=== PATIENT | female | born 1955 | race Caucasian/White ===

== ENCOUNTER 2020-05-10 13:12 | Observation (INO) | payer OTHER ==
[2020-05-10 15:50] LABS: Absolute Lymphocytes (CBC) 1.7 K/uL (0.7-4.9); Basophils % 0.9 % (0-1.3); Hematocrit 40.7 % (36.0-45.0); Lymphocytes % 27.1 % (15.3-44.8); MPV 8.5 fL (7.6-11.3); RBC Red Blood Cell Count 4.39 M/uL (3.86-4.86)
[2020-05-10 15:55] LABS: Protime INR 0.92
--- NOTE | 2020-05-10 15:55 | RAD REPORT ---
EXAM DESCRIPTION: RAD - Chest Single View - 05/10/2020 3:46 pm CLINICAL HISTORY: CHEST PAIN Chest pain. COMPARISON: No comparisons FINDINGS: Portable technique limits examination quality. The lungs are grossly clear. The heart is upper limit of normal in size. No displaced fractures. IMPRESSION: No acute intrathoracic process suspected.
[2020-05-10 16:39] LABS: ALT/SGPT 23 U/L (12-78); AST/SGOT 12 U/L (15-37); Albumin 3.4 g/dL (3.4-5.0); Alkaline Phosphatase 78 U/L (45-117); BUN Blood Urea Nitrogen 18 mg/dL (7-18); Bicarbonate 26 mmol/L (21-32); Bilirubin Direct 0.2 mg/dL (0-0.2); Bilirubin Total 0.6 mg/dL (0.2-1.0); Glucose Level 104 mg/dL (74-106); NT PRO-BNP 112 pg/mL (<125); Potassium 4.1 mmol/L (3.5-5.1); Protein, Total 7.4 g/dL (6.4-8.2); Sodium Level 140 mmol/L (136-145); Troponin (Emerg Dept Use Only) < 0.02 ng/mL (0.0-0.045)
--- NOTE | 2020-05-10 16:57 | EDPHYS ---
Physician Documentation [facility] Name: Sheree Fuentes Age: 65 yrs Sex: Female : 1955 Arrival Date: 05/10/2020 Time: 13:12 Bed 26 Private MD: ED Physician Janak Castro HPI: 05/10 13:21 This 65 yrs old Female presents to ER via Ambulatory with complaints of Chest jmm Pain. 13:21 The patient or guardian reports chest pain that is located primarily in the substernal [facility] area. Onset: gradually, 2 hour(s) ago. The pain does not radiate. Associated signs and symptoms: Pertinent positives: shortness of breath. The chest pain is described as aching, a pressure. Duration: The patient or guardian reports a single episode, that lasted 1 hour(s). Modifying factors: The symptoms are alleviated by nothing. the symptoms are aggravated by nothing. The patient has experienced similar episodes in the past, similar to previous [place]. Historical: - Allergies: 13:20 No Known Allergies; ca1 - Home Meds: 17:26 aspirin 81 mg Oral TbEC 1 tab once daily [Active]; hydrochlorothiazide 12.5 mg Oral cap zb 1 cap once daily [Active]; simvastatin Oral [Active]; meloxicam oral oral [Active]; 17:28 lisinopril 40 mg Oral tab 20 mg bid [Active]; zb - PMHx: 13:20 Myocardial infarction; Hypertension; CAD; Hernia; ca1 - PSHx: 13:20 Stents; ca1 - Immunization history:: Flu vaccine is not up to date. - Social history:: Smoking status: Patient/guardian denies using tobacco, the patient reports quitting approximately 7 years ago. ROS: 13:21 Constitutional: Negative for fever, chills, and weight loss. jmm 13:21 Cardiovascular: Positive for chest pain. 13:21 Respiratory: Positive for shortness of breath. 13:21 All other systems are negative. Exam: 13:21 Constitutional: This is a well developed, well nourished patient who is awake, alert, jmm and in no acute distress. Head/Face: atraumatic. Eyes: EOMI, no conjunctival erythema appreciated ENT: Moist Mucus Membranes Neck: Trachea midline, Supple Chest/axilla: Normal chest wall appearance and motion. Cardiovascular: Regular rate and rhythm. No edema appreciated Respiratory: Normal respirations, no respiratory distress appreciated Abdomen/GI: Non distended, soft Back: Normal ROM Skin: General appearance color normal MS/ Extremity: Moves all extremities, no obvious deformities appreciated, no edema noted to the lower extremities Neuro: Awake and alert, normal gait Psych: Behavior is normal, Mood is normal, Patient is cooperative and pleasant Vital Signs: 13:17 BP 229 / 87; Pulse 98; Resp 16 S; Temp 97.1(TE); Pulse Ox 95% on R/A; Weight 106.59 kg ca1 (R); Height 5 ft. 5 in. (165.10 cm) (R); Pain 8/10; 15:25 BP 151 / 62; zb 15:55 Pulse Ox 87% on R/A; zb 16:23 BP 161 / 66; Pulse 50; Resp 18; Pulse Ox 95% on 2 lpm NC; zb 17:20 BP 145 / 59; Pulse 52; Resp 22; Pulse Ox 94% on R/A; dh4 18:46 BP 153 / 65; Pulse 55; Pulse Ox 99% on R/A; dh4 20:53 BP 152 / 64; Pulse 53; Resp 20; Pulse Ox 95% on R/A; zb 13:17 Body Mass Index 39.11 (106.59 kg, 165.10 cm) ca1 MDM: 15:36 Patient medically screened. [facility] 16:54 The patient was given aspirin in the Emergency Department. [facility] 16:54 Data reviewed: vital signs, nurses notes. Counseling: I had a detailed discussion with [facility] the patient and/or guardian regarding: the historical points, exam findings, and any diagnostic results supporting the discharge/admit diagnosis, lab results, radiology results, the need for further work-up and treatment in the hospital. ED course: I discussed the patient with Dr. Lennon whom accepted admission. . 05/10 15:20 Order name: Basic Metabolic Panel; Complete Time: 16:41 [facility] 05/10 15:20 Order name: CBC with Diff; Complete Time: 15:57 [facility] 05/10 15:20 Order name: LFT's; Complete Time: 16:41 [facility] 05/10 15:20 Order name: Magnesium; Complete Time: 16:41 [facility] 05/10 15:20 Order name: NT PRO-BNP; Complete Time: 16:41 [facility] 05/10 15:20 Order name: PT-INR; Complete Time: 15:57 [facility] 05/10 15:20 Order name: Troponin (emerg Dept Use Only); Complete Time: 16:41 [facility] 05/10 17:21 Order name: CKMB Creatine Kinase MB [facility] 05/10 17:21 Order name: CKMB Creatine Kinase MB; Complete Time: 20:14 [facility] 05/10 17:21 Order name: CKMB Creatine Kinase MB [facility] 05/10 17:22 Order name: CBC with Automated Diff [facility] 05/10 17:22 Order name: CBC with Automated Diff [facility] 05/10 17:22 Order name: CKMB Creatine Kinase MB [facility] 05/10 17:22 Order name: Comprehensive Metabolic Panel [facility] 05/10 13:21 Order name: EKG; Complete Time: 13:21 [facility] 05/10 15:20 Order name: XRAY Chest (1 view); Complete Time: 15:57 [facility] 05/10 17:22 Order name: CONS Pharmacy Consult [facility] 05/10 17:22 Order name: CONS Physician Consult [facility] 05/10 17:22 Order name: Heart Healthy [facility] 05/10 17:22 Order name: EKG Electrocardiogram [facility] 05/10 17:22 Order name: Comprehensive Metabolic Panel [facility] 05/10 17:22 Order name: Lipid Profile [facility] 05/10 17:22 Order name: Lipid Profile [facility] 05/10 17:22 Order name: Troponin I [facility] 05/10 17:22 Order name: Troponin I; Complete Time: 20:14 [facility] 05/10 17:22 Order name: Troponin I [facility] 05/10 17:25 Order name: Echo with Doppler [facility] 05/10 17:33 Order name: COVID-19 : Document "Date of Symptom Onset" if Symptomatic. [facility] 05/10 19:12 Order name: SARS-COV-2 RT PCR; Complete Time: 19:14 [facility] 05/10 13:21 Order name: EKG - Nurse/Tech; Complete Time: 13:26 [facility] 05/10 15:20 Order name: Cardiac monitoring; Complete Time: 15:44 [facility] 05/10 15:20 Order name: IV Saline Lock; Complete Time: 15:44 [facility] 05/10 15:20 Order name: Labs collected and sent; Complete Time: 15:44 [facility] 05/10 15:20 Order name: O2 Per Protocol; Complete Time: 15:44 [facility] 05/10 15:20 Order name: O2 Sat Monitoring; Complete Time: 15:44 [facility] 05/10 17:22 Order name: EKG Electrocardiogram [facility] 05/10 18:51 Order name: Labs - recollect needed: Phlebotomy will come and draw; Complete Time: 18:51aa5 Administered Medications: 17:20 Drug: Aspirin Chewable Tablet 324 mg {Note: patient given 3x 81mg took a baby aspirin zb at home. .} Route: PO; 18:00 Follow up: Response: No adverse reaction zb Disposition: 05/10/20 16:55 Hospitalization ordered by Ruiz Lennon for Observation. Preliminary diagnosis is Chest pain, unspecified. - Bed requested for Telemetry/MedSurg (observation). - Status is Observation. zb - Condition is Stable. - Problem is new. - Symptoms are unchanged. Addendum: 05/15/2020 15:55 Co-signature as Attending Physician, Janak Castro MD. r n Signatures: Dispatcher [employer] [facility] Mikey Rausch PA PA Janak Hernandez MD MD rn Calderon, Audri, RN RN aa5 Yakelin Escobar RN RN tl1 Lauren Henderson, RN RN ca1 Lucía Jackson RN RN zb Corrections: (The following items were deleted from the chart) 05/10 15:29 15:22 Chest Single View+RAD.RAD.BRZ ordered. [facility] EDWA 19:21 16:55 Hospitalization Ordered by Ruiz Lennon MD for Observation. Preliminary tl1 diagnosis is Chest pain, unspecified. Bed requested for Telemetry/MedSurg (observation). Status is Observation. Condition is Stable. Problem is new. Symptoms are unchanged. [facility] 20:53 19:21 05/10/2020 16:55 Hospitalization Ordered by Ruiz Lennon MD for Observation. zb Preliminary diagnosis is Chest pain, unspecified. Bed requested for Telemetry/MedSurg (observation). Status is Observation. Condition is Stable. Problem is new. Symptoms are unchanged. tl1
--- NOTE | 2020-05-10 16:57 | ER ---
Nurse's Notes [facility] Name: Sheree Fuentes Age: 65 yrs Sex: Female : 1955 Arrival Date: 05/10/2020 Time: 13:12 Bed 26 Private MD: Diagnosis: Chest pain, unspecified Presentation: 05/10 13:17 Chief complaint: Patient states: chest pain off and on x 2 weeks, has been worse today, ca1 about 30 mins SIDER. HX of heart attack, stents x 5. Coronavirus screen: Client denies travel out of the [place] in the last 14 days. At this time, the client does not indicate any symptoms associated with coronavirus-19. Ebola Screen: Patient negative for fever greater than or equal to 101.5 degrees Fahrenheit, and additional compatible Ebola Virus Disease symptoms Patient denies exposure to infectious person. Patient denies travel to an Ebola-affected area in the 21 days before illness onset. No symptoms or risks identified at this time. Initial Sepsis Screen: Does the patient meet any 2 criteria? No. Patient's initial sepsis screen is negative. Does the patient have a suspected source of infection? No. Patient's initial sepsis screen is negative. Risk Assessment: Do you want to hurt yourself or someone else? Patient reports no desire to harm self or others. Onset of symptoms was May 10, 2020. 13:17 Method Of Arrival: Ambulatory ca1 13:17 Acuity: CHAD 3 ca1 Historical: - Allergies: 13:20 No Known Allergies; ca1 - Home Meds: 17:26 aspirin 81 mg Oral TbEC 1 tab once daily [Active]; hydrochlorothiazide 12.5 mg Oral cap zb 1 cap once daily [Active]; simvastatin Oral [Active]; meloxicam oral oral [Active]; 17:28 lisinopril 40 mg Oral tab 20 mg bid [Active]; zb - PMHx: 13:20 Myocardial infarction; Hypertension; CAD; Hernia; ca1 - PSHx: 13:20 Stents; ca1 - Immunization history:: Flu vaccine is not up to date. - Social history:: Smoking status: Patient/guardian denies using tobacco, the patient reports quitting approximately 7 years ago. Screenin:23 Abuse screen: Denies threats or abuse. Denies injuries from another. Nutritional zb screening: No deficits noted. Tuberculosis screening: No symptoms or risk factors identified. Fall Risk None identified. Assessment: 15:18 General: Appears in no apparent distress. comfortable, Behavior is calm, cooperative, zb appropriate for age, Denies fever, feeling ill, chills. Pain: Complains of pain in anterior aspect of left upper chest Pain radiates to neck, left supraclavicular area and left clavicle Pain currently is 6 out of 10 on a pain scale. Quality of pain is described as heavy, radiating, Pain began 2 weeks but worst today Is continuous, Also complains of nausea. Neuro: Level of Consciousness is awake, alert, obeys commands, Oriented to person, place, time, situation, Optical Laboratory Mechanic are equal bilaterally Speech is normal, Facial symmetry appears normal, Pupils are PERRLA. Cardiovascular: Reports shortness of breath, Heart tones S1 S2 present Capillary refill < 3 seconds in bilateral fingers Patient's skin is warm and dry. Pulses are all present. Edema is 2+ to left foot and right foot Chest pain is described as mild, quality is heaviness, pressure, is located in left anterior chest wall radiates to left neck began episodic for the past 2 weeks. Respiratory: Airway is patent Respiratory effort is even, unlabored, Respiratory pattern is regular, symmetrical, Breath sounds are clear bilaterally. the patient has moderate shortness of breath. GI: Abdomen is round distended, obese, Bowel sounds present X 4 quads. Abd is soft and non tender X 4 quads. : No signs and/or symptoms were reported regarding the genitourinary system. EENT: No signs and/or symptoms were reported regarding the EENT system. Derm: Skin is intact, is healthy with good turgor, Skin is dry, Skin is normal, Skin temperature is warm. Musculoskeletal: Range of motion: intact in all extremities. 15:27 Reassessment: daughter (KARLI) called [phone] for information on patient. zb 15:29 Reassessment: x-ray at bedside. zb 16:24 Reassessment: Patient appears in no apparent distress at this time. Patient and/or zb family updated on plan of care and expected duration. Pain level reassessed. Patient is alert, oriented x 3, equal unlabored respirations, skin warm/dry/pink. 16:32 Reassessment: spoke to patient daughter. zb 16:45 Reassessment: hospitalist at bedside. zb 17:29 Reassessment: Patient appears in no apparent distress at this time. Patient and/or zb family updated on plan of care and expected duration. Pain level reassessed. Patient is alert, oriented x 3, equal unlabored respirations, skin warm/dry/pink. pt ambulated to the restroom. 18:30 Reassessment: Patient appears in no apparent distress at this time. Patient and/or zb family updated on plan of care and expected duration. Pain level reassessed. Patient is alert, oriented x 3, equal unlabored respirations, skin warm/dry/pink. no changes at this time. patient appears to be resting light dimmed. 19:18 Reassessment: Patient appears in no apparent distress at this time. Patient and/or zb family updated on plan of care and expected duration. Pain level reassessed. Patient is alert, oriented x 3, equal unlabored respirations, skin warm/dry/pink. patient currently eating food. Vital Signs: 13:17 BP 229 / 87; Pulse 98; Resp 16 S; Temp 97.1(TE); Pulse Ox 95% on R/A; Weight 106.59 kg ca1 (R); Height 5 ft. 5 in. (165.10 cm) (R); Pain 8/10; 15:25 BP 151 / 62; zb 15:55 Pulse Ox 87% on R/A; zb 16:23 BP 161 / 66; Pulse 50; Resp 18; Pulse Ox 95% on 2 lpm NC; zb 17:20 BP 145 / 59; Pulse 52; Resp 22; Pulse Ox 94% on R/A; dh4 18:46 BP 153 / 65; Pulse 55; Pulse Ox 99% on R/A; dh4 20:53 BP 152 / 64; Pulse 53; Resp 20; Pulse Ox 95% on R/A; zb 13:17 Body Mass Index 39.11 (106.59 kg, 165.10 cm) ca1 ED Course: 13:12 Patient arrived in ED. as 13:19 Triage completed. ca1 13:20 Arm band placed on right wrist. ca1 15:11 Lucía Jackson RN is Primary Nurse. zb 15:17 Mikey Rausch PA is PHCP. jmm 15:17 Janak Castro MD is Attending Physician. jmm 15:23 No provider procedures requiring assistance completed. zb 15:28 Patient has correct armband on for positive identification. Pulse ox on. NIBP on. Door zb closed. Noise minimized. Warm blanket given. Pillow given. 15:28 Patient maintains SpO2 saturation greater than 95% on room air. zb 15:44 Inserted saline lock: 20 gauge in left hand, using aseptic technique. Blood collected. zb 15:46 XRAY Chest (1 view) In Process Unspecified. EDMS 16:55 Ruiz Lennon MD is Hospitalizing Provider. jmm 18:23 COVID swab sent to lab. zb 20:53 Patient admitted, IV remains in place. zb Administered Medications: 17:20 Drug: Aspirin Chewable Tablet 324 mg {Note: patient given 3x 81mg took a baby aspirin zb at home. .} Route: PO; 18:00 Follow up: Response: No adverse reaction zb Outcome: 16:55 Decision to Hospitalize by Provider. jmm 20:52 Admitted to Med/surg accompanied by tech, room 209, with chart, Report called to bassam Shankar RN 20:52 Condition: stable 20:52 Instructed on the need for admit, Demonstrated understanding of instructions. 20:53 Patient left the ED. bassam Signatures: Dispatcher [employer] EDMS Mikey Rausch PA PA jmm Martinez, Amelia as Acob, Cheryl, RN GURU [facility] Lucía Jackson RN RN zb
[2020-05-10] MEDS ORDERED: ONDANSETRON 4 MG/2 ML VIAL IV PRN (17:16)
--- NOTE | 2020-05-10 17:29 | P.HP ---
Certification for Inpatient Patient admitted to: Observation With expected LOS: <2 Midnights Patient will require the following post-hospital care: None Practitioner: I am a practitioner with admitting privileges, knowledge of patient current condition, hospital course, and medical plan of care. Services: Services provided to patient in accordance with Admission requirements found in Title 42 Section 412.3 of the Code of Federal Regulations Patient History Date of Service: 05/10/20 Reason for admission: Chest pain, elevated blood pressure History of Present Illness: 65-year-old female with past medical history of hypertension, CHF, CAD status post 5 stents placed came to ER with chest pain which started this morning. Patient states that the pain started insidiously while she was at rest. Retrosternal location, pressure-like feeling, 8/10 in severity, nonradiating associated with shortness of breath. Denies any diaphoresis. No modifying f actors. Denies any nausea vomiting or diarrhea. No fever or chills. No sick contacts. She was also found to have high blood pressure and to her home medications but even in spite of that her blood pressure was creeping up and got worried and came to ER. The patient was assessed in the ER and chest pain got better and blood pressure was controlled The patient is being admitted for further management of chest pain to rule out ACS. His EKG shows ST-T changes consistent with inferolateral ischemia. Home medications list reviewed: Yes - Past Medical/Surgical History -: Hypertension, hyperlipidemia, CAD, CHF Past Surgical History: Reviewed- Non-Contributory -: Stents placed -: Hernia surgery - Family History Family History: Reviewed- Non-Contributory (Family history of hypertension, CAD) - Social History Smoking Status: Former smoker Review of Systems 10-point ROS is otherwise unremarkable Cardiovascular: Chest Pain, Other (For pertinent positives include chest pain, shortness of breath) Physical Examination - Vital Signs Temperature: 98.2 F Blood Pressure: 146/88 Pulse: 78 Respirations: 18 Pulse Ox (%): 96 - Physical Exam General: Alert, In no apparent distress, Oriented x3, Obese HEENT: Atraumatic, Normocephalic Neck: Supple, JVD not distended Respiratory: Clear to auscultation bilaterally, Normal air movement Cardiovascular: No edema, Regular rate/rhythm, Normal S1 S2 Capillary refill: <2 Seconds Gastrointestinal: Soft and benign, W/out hepatosplenomegaly Musculoskeletal: No clubbing, No swelling Integumentary: No rashes Neurological: Normal speech, Normal strength at 5/5 x4 extr Lymphatics: No axilla or inguinal lymphadenopathy - Studies Laboratory Data (last 24 hrs) 05/10/20 15:38: PT 10.6, INR 0.92 05/10/20 15:38: WBC 6.30, Hgb 14.3, Hct 40.7, Plt Count 220 05/10/20 15:38: Sodium 140, Potassium 4.1, BUN 18, Creatinine 0.60, Glucose 104, Magnesium 2.0, Total Bilirubin 0.6, AST 12 L, ALT 23, Alkaline Phosphatase 78 Assessment and Plan - Problems (Diagnosis) (1) Unstable angina Current Visit: Yes Status: Acute (2) Accelerated hypertension Current Visit: Yes Status: Acute (3) Hyperlipidemia Current Visit: Yes Status: Chronic - Plan Unstable angina Accelerated hypertension Hyperlipidemia History of CHF possibly diastolic History of CAD status post stents 5 Obesity Former smoker Plan Monitor closely under telemetry Trend cardiac enzymes Will start on aspirin and statin Will get EKG serially Cardiology consulted Get an echocardiogram Continue home medications and titrate as needed start on hydralazine p.r.n. EKG shows ST-T changes in the infero lateral leads Chest x-ray shows no acute cardio pulmonary process Advice lifestyle modification GI/DVT prophylaxis Advanced directives full code - Advance Directives Does patient have a Living Will: No Does patient have a Durable POA for Healthcare: No Time Spent Managing Pts Care (In Minutes): 42
[2020-05-10] MEDS ORDERED: ASPIRIN 81 MG CHEWABLE TABLET ONE (17:34)
[2020-05-10 20:05] LABS: CKMB Creatine Kinase MB 1.3 ng/mL (0.3-3.6); Troponin I < 0.02 ng/mL (0.0-0.045)
[2020-05-10 21:03] VITALS: BMI 39.9
[2020-05-10] MEDS: ATORVASTATIN 40 MG TAB PO SCH (22:01)
[2020-05-11 00:31] LABS: CKMB Creatine Kinase MB 1.5 ng/mL (0.3-3.6); Troponin I < 0.02 ng/mL (0.0-0.045)
[2020-05-11 05:25] LABS: Absolute Lymphocytes (CBC) 2.2 K/uL (0.7-4.9); Basophils % 0.5 % (0-1.3); Hematocrit 40.2 % (36.0-45.0); Lymphocytes % 33.9 % (15.3-44.8); MPV 8.9 fL (7.6-11.3); RBC Red Blood Cell Count 4.14 M/uL (3.86-4.86)
[2020-05-11 05:36] LABS: Bilirubin Total 0.4 mg/dL (0.2-1.0); Potassium 4.1 mmol/L (3.5-5.1); Protein, Total 6.5 g/dL (6.4-8.2)
--- NOTE | 2020-05-11 05:38 | EKG ---
Test Date: 2020-05-10 Test Time: 13:24:06 [employer] And Folding Supervisor: MARY MEASUREMENT RESULTS: Intervals: Rate: 65 FL: 130 QRSD: 88 QT: 388 QTc: 403 [place]: P: 61 FL: 130 QRS: 47 T: 2 INTERPRETIVE STATEMENTS: Normal sinus rhythm with sinus arrhythmia Nonspecific T wave abnormality Abnormal ECG No previous ECG available for comparison Electronically Signed On 05-11-20 05:35:34 [employer] FILTER INSPECTOR by Richar Wray
[2020-05-11] MEDS: MORPHINE 2 MG/ML SYR IV PRN (08:50)
[2020-05-11] MEDS: ASPIRIN EC 81 MG TAB PO SCH (08:50)
[2020-05-11] MEDS ORDERED: INFLUENZA VACCINE (for 3y+) 0.5 ML DOSE IMVAC ONE (10:00)
[2020-05-11] MEDS ORDERED: PNEUMOCOCCAL VACCINE 0.5 ML IMVAC ONE (10:00)
[2020-05-11] MEDS: HYDRALAZINE HCL 20 MG/ML VIAL IV PRN (16:59)
[2020-05-11] MEDS: ENOXAPARIN 40 MG/0.4 ML SQ SCH (16:59)
[2020-05-11] MEDS: ACETAMINOPHEN 500 MG TAB PO PRN (17:02)
[2020-05-11] MEDS: ATORVASTATIN 40 MG TAB PO SCH (20:38)
--- NOTE | 2020-05-11 20:41 | CON ---
Date of Consultation: 05/11/2020 Presenting Complaints: Chest pain. History Of Present Illness: This is a 65-year-old female with known coronary artery disease status p ost 5 stents put in year 2013 all at once due to acute coronary syndrome back then, comes in with radha st pain, pressure like, radiates to the neck and jaw and left upper extremity and worsens with activi ty, and she gets nauseated with it and it started light about 2 weeks ago and now it is getting worse and more persistent and more frequent. She is chest-pain free at this time. Past Medical History: Hypertension, dyslipidemia, coronary artery disease and congestive heart failu re. Medications: Refer to reconciliation sheet for detailed list. Allergies: NO KNOWN DRUG ALLERGIES. Family History: No premature coronary artery disease or cancer. Past Surgical History: Cardiac stent placement. Social History: She does not smoke or drink. Does not use any drugs. Review of Systems: All systems reviewed and negative except as mentioned in the HPI. Physical Examination: Vital Signs: Temperature is 96.9, pulse 52, breathing at 15, blood pressure 136/61, saturating 90%. General: Pleasant middle-aged female, in no apparent distress. Head and Neck: Pupils are equal, reactive to light. Intact eye movements. No JVD. No cervical lym phadenopathy. Neck: Supple. Thyroid is not enlarged. Lungs: Clear to auscultation bilaterally. No rhonchi, rales, or crackles. No accessory muscle use. Heart: Regular rate and rhythm. No extra sounds. Abdomen: Soft, nontender. Bowel sounds positive. No organomegaly. No rigidity or rebound. Extremities: No edema, clubbing, cyanosis. Intact pulses. Skin: No rashes. Neurologic: Alert, awake, oriented x3. No acute focal deficits appreciated. Investigations: Creatinine 0.7. Troponin less than 0.02 x3 and hemoglobin is 13.7. Assessment And Recommendation: 1.Chest pain. This is very typical pain, likely representing unstable angina with known history of coronary artery disease and multiple stents. Recommend coronary angiogram. Discussed risks, benefit s, alternatives with the patient and her daughter and agree with the procedure. We will schedule for tomorrow morning as the patient had a large lunch today. Please make sure patient is on aspirin and high-dose statin and n.p.o. past midnight for coronary angiogram tomorrow morning. 2.Hypertension. Blood pressure is acceptable. Continue current therapy. SR/MODL Voice ID: [id number] Report ID: [id number]
[2020-05-12] MEDS: HYDRALAZINE HCL 20 MG/ML VIAL IV PRN ×2 (00:29→16:41)
[2020-05-12] MEDS: ASPIRIN EC 81 MG TAB PO SCH (06:07)
--- NOTE | 2020-05-12 08:24 | ECHO ---
HEIGHT: 5 ft 5.5 in WEIGHT: 243 lb 4.8 oz DATE OF STUDY: 05/11/[address]: Ghulam Lennon DO 2-DIMENSIONAL: YES M.MODE: YES DOPPLER: YES COLOR FLOW: YES TDS: YES PORTABLE: NO DEFINITY: NO BUBBLE STUDY: NO DIAGNOSIS: CHEST PAIN CARDIAC HISTORY: CATHERIZATION: YES SURGERY: NO PROSTHETIC VALVE: NO PACEMAKER: NO MEASUREMENTS (cm) DIASTOLIC (NORMALS) SYSTOLIC (NORMALS) IVSd 1.1 (0.6-1.2) LA Diam 3.5 (1.9-4.0) LVEF 55-60% LVIDd 4.9 (3.5-5.7) LVIDs 3.2 (2.0-3.5) %FS 33% LVPWd 1.2 (0.6-1.2) Ao Diam 3.0 (2.0-3.7) 2 DIMENSIONAL ASSESSMENT: RIGHT ATRIUM: NORMAL LEFT ATRIUM: NORMAL RIGHT VENTRICLE: NORMAL LEFT VENTRICLE: NORMAL TRICUSPID VALVE: NORMAL MITRAL VALVE: NORMAL PULMONIC VALVE: NORMAL AORTIC VALVE: NORMAL PERICARDIAL EFFUSION: NONE AORTIC ROOT: NORMAL LEFT VENTRICULAR WALL MOTION: ANTEROSEPTAL HYPOKINESIS. DOPPLER/COLOR FLOW: NORMAL. COMMENTS: NORMAL EJECTION FRACTION OF 55-60%, NORMAL WALL MOTION. MILD MITRAL REGURGITATION, MILD TRICUSPID REGURGITATION. TECHNOLOGIST: CAROL CHAVIRA
--- NOTE | 2020-05-12 12:13 | P.PN ---
Subjective Date of Service: 05/11/20 Subjective: No new changes, No C/O voiced, Improving Review of Systems 10-point ROS is otherwise unremarkable Physical Examination - Vital Signs Temperature: 97.0 F Blood Pressure: 174/76 Pulse: 68 Respirations: 15 Pulse Ox (%): 94 - Physical Exam General: Alert, In no apparent distress, Oriented x3 Respiratory: Clear to auscultation bilaterally, Normal air movement Cardiovascular: Regular rate/rhythm, Normal S1 S2 Gastrointestinal: Normal bowel sounds, No tenderness Musculoskeletal: No tenderness Integumentary: No rashes Neurological: Normal speech, Normal tone, Normal affect Lymphatics: No axilla or inguinal lymphadenopathy - Studies Medications List Reviewed: Yes Assessment & Plan - Problems (Diagnosis) (1) Unstable angina Current Visit: Yes Status: Acute (2) Hyperlipidemia Current Visit: Yes Status: Chronic - Plan 1. Serial troponins and EKG 2. Appreciate Cardiology consultation 3. Echocardiogram and cardiac catheterization ordered 4. Anti-platelet therapy, anti coagulation, beta-cassy, statin, and O2 as needed 5. IV morphine for pain 6. Nitro p.r.n. Discharge Plan: Home Plan to discharge in: 48 Hours - Advance Directives Does patient have a Living Will: No Does patient have a Durable POA for Healthcare: No - Code Status/Comfort Care Code Status Assessed: Yes Code Status: Full Code Critical Care: No Time Spent Managing PTS Care (In Minutes): 35
[2020-05-12] MEDS ORDERED: NA CHLORIDE 0.9% 500 ML ONE (12:32)
[2020-05-12] MEDS ORDERED: HEPA 1000U/500MLS 1,000 UNIT/500 ML BAG IV ONE ×2 (14:28→14:56)
[2020-05-12] MEDS ORDERED: LIDOCAINE 1% 20 ML MDV ONE (14:28)
[2020-05-12] MEDS ORDERED: MIDAZOLAM HCL 2 MG/2 ML INJ ONE ×2 (14:31→14:43)
[2020-05-12] MEDS ORDERED: FENTANYL CITR 100 MCG/2 ML ONE (14:32)
[2020-05-12] MEDS ORDERED: NITROGLYCERIN 100 MCG/ML SYR (for cath lab use only) IV ONE (14:32)
[2020-05-12] MEDS ORDERED: NITROGLYCERIN/D5W 25 MG/250 ML BTL IV ONE (14:32)
[2020-05-12] MEDS ORDERED: NA CHLORIDE 0.9% 50 ML ONE (14:35)
[2020-05-12] MEDS ORDERED: PRASUGREL (EFFIENT) 10 MG TAB ONE (15:36)
[2020-05-12] MEDS ORDERED: ONDANSETRON 4 MG/2 ML VIAL ONE (16:18)
[2020-05-12] MEDS ORDERED: MORPHINE 4 MG/ML SYR ONE (16:29)
[2020-05-12] MEDS ORDERED: NITROGLYCERIN 0.4 MG/TAB SL ONE (16:38)
[2020-05-12] MEDS: MORPHINE 2 MG/ML SYR IV PRN (16:40)
[2020-05-12] MEDS ORDERED: HYDRALAZINE HCL 20 MG/ML VIAL ONE (16:59)
[2020-05-12] MEDS: ENOXAPARIN 40 MG/0.4 ML SQ SCH (17:00)
[2020-05-12] MEDS: ATORVASTATIN 40 MG TAB PO SCH (20:36)
--- NOTE | 2020-05-12 21:11 | OP ---
Date of Procedure: 05/12/2020 Surgeon: Richar Wray MD Process Control Technician: Mr. Estes. She was seen by Dr. Cedeno yesterday, 05/11/2020 and was set up for a heart catheterization for today 05/12/2000 because of unstable angina and CAD. Procedure In Detail: The patient was brought to the [facility]razzo laborer today as an inpatient. She was prepped and draped in the routine sterile fashion. She was given Versed and fentanyl for sedation. We init ially started in the right common femoral artery area. We used 10 cc of xylocaine. A 6-German sheat h was introduced in the right common femoral artery. I could not get access with a wire. Angiograph y there showed 100% occlusion of the right common iliac artery. We attempted to cross the lesion wit h a Andreas wire, which was unsuccessful. We switched then to the left common femoral artery area and we put a 6-German sheath there using the Seldinger technique and 10 cc of xylocaine. On the right s musa, we decided to close with an Angio-Seal. On the left side, we decided to closed with StarClose. The heart catheterization, left ventriculogram and selective coronary arteriogram were done. We use d the left JL4 and JR4 for the procedure. The left main was normal. She had mild to moderate plaqui ng in the LAD, patent stent in the circumflex. She was codominant. The RCA showed a 30% proximal RC A. She had an 80% in-stent restenosis in the mid RCA. She received Angiomax. We switched to a JR4 6-German guide with side hole. A Ellsworth wire was used to cross the lesion successfully. We pre-dila douglas with initially a compliant Emerge 3.0 x 15 and then we switched to a noncompliant emerge 3.0 and 3.5 at high atmospheric pressure. Following that, we put a 3.5 x 16 Synergy. We postdilated that on e as well with a 3.5 x 15 noncompliant Emerge balloon with a 20% residual. There were no complicatio ns. Blood Loss: 5 cc. Postoperative Diagnoses: 1.Coronary artery disease, status post successful PCI and stent of the RCA. 2.Peripheral arterial disease with 100% occlusion of the right common iliac artery. 3.Patent stent of the circumflex with mild plaquing in the LAD. The patient received aspirin, Erika nt, Angiomax. She has received Lovenox yesterday on the floor. Anesthesia: Total conscious sedation was 60 minutes. Plan: The patient to be observed overnight and send home in the morning on her medical regimen, whic h should include aspirin, Plavix, and statins as well as low-dose beta blockers. BRAIN/RON Voice ID: [id number] Report ID: [id number]
[2020-05-12] MEDS: ACETAMINOPHEN 500 MG TAB PO PRN (21:23)
[2020-05-12] MEDS ORDERED: ACETAMINOPHEN 325 MG TABLET PO PRN (21:41)
[2020-05-12] MEDS ORDERED: NITROGLYCERIN 0.4 MG/TAB SL PRN (21:41)
[2020-05-12] MEDS ORDERED: MORPHINE 4 MG/ML SYR IV PRN (21:46)
[2020-05-12] MEDS ORDERED: ONDANSETRON 4 MG/2 ML VIAL IV PRN (21:46)
[2020-05-12] MEDS ORDERED: NA CHLORIDE 0.9% 1,000 ML IV SCH (22:00)
[2020-05-13 06:04] LABS: Absolute Lymphocytes (CBC) 2.5 K/uL (0.7-4.9); Basophils % 0.4 % (0-1.3); Hematocrit 38.4 % (36.0-45.0); Lymphocytes % 30.2 % (15.3-44.8); MPV 8.7 fL (7.6-11.3); RBC Red Blood Cell Count 3.92 M/uL (3.86-4.86)
[2020-05-13 06:09] LABS: BUN Blood Urea Nitrogen 24 mg/dL (7-18); Bicarbonate 27 mmol/L (21-32); Glucose Level 104 mg/dL (74-106); Potassium 4.1 mmol/L (3.5-5.1); Sodium Level 142 mmol/L (136-145)
[2020-05-13] MEDS: ASPIRIN EC 81 MG TAB PO SCH (08:47)
[2020-05-13] MEDS ORDERED: CLOPIDOGREL 75 MG TABLET PO SCH (09:00)
[2020-05-13 12:19] VITALS: O2SAT 95
[2020-05-13 14:35] VITALS: BP 149/67; TEMP 98.7
--- NOTE | 2020-05-14 05:51 | PN ---
Date of Progress Note: 05/13/2020 Ms. Fuentes had come in with unstable angina. Has had a history of coronary artery disease status p ost multiple stents in the circumflex and the RCA. She has had a history of obesity, hypertension, d yslipidemia. On 05/12/2020, she underwent a heart catheterization with selective coronary arteriogra m and underwent an angioplasty and stent of the mid RCA in-stent restenosis. She also was found to h ave a completely occluded right common femoral artery by angiography. We have to use a left common f emoral artery approach. She had no claudication. Overnight, her vital signs were stable, she was af ebrile, in sinus rhythm. Her groin sites were intact. I think she can go home today with aspirin, s tatin, Plavix, metoprolol. I would like to see her in the office in the next 2 to 4 weeks. Her circ umflex stents were open. Her LAD had some minimal disease. BRAIN/RON Voice ID: [id number] Report ID: [id number]
--- NOTE | 2020-05-15 17:15 | EKG ---
Test Date: 2020-05-12 Test Time: 16:31:49 Community Mental Health Worker: MEASUREMENT RESULTS: Intervals: Rate: 55 [place]: 144 QRSD: 92 QT: 436 QTc: 417 [place]: P: 55 [place]: 144 QRS: 20 T: 70 INTERPRETIVE STATEMENTS: Sinus bradycardia with sinus arrhythmia Possible Inferior infarct, age undetermined Abnormal ECG Compared to ECG 05/10/2020 13:24:06 Myocardial infarct finding now present Sinus rhythm no longer present T-wave abnormality no longer present Electronically Signed On 05-15-20 17:06:56 SPEECH THERAPY ASSISTANT by Richar Wray
--- NOTE | 2020-05-29 23:32 | P.PN ---
Date of Service: 05/12/20 Subjective Subjective: Patient is doing better. Patient no new complaints. Cardiac symptoms are stable. No new changes, No C/O voiced, Improving Review of Systems 10-point ROS is otherwise unremarkable Physical Examination - Vital Signs Reviewed - Physical Exam General: Alert, In no apparent distress, Oriented x3 Respiratory: Clear to auscultation bilaterally, Normal air movement Cardiovascular: Regular rate/rhythm, Normal S1 S2 Gastrointestinal: Normal bowel sounds, No tenderness Musculoskeletal: No tenderness Neurological: Normal speech, Normal tone, Normal affect Assessment & Plan - Problems (Diagnosis) (1) Unstable angina Current Visit: Yes Status: Acute (2) Hyperlipidemia Current Visit: Yes Status: Chronic - Plan Continue with plan of care as mentioned below: 1. Serial troponins and EKG 2. Appreciate Cardiology consultation 3. Echocardiogram and cardiac catheterization ordered 4. Anti-platelet therapy, anti coagulation, beta-cassy, statin, and O2 as needed 5. IV morphine for pain 6. Nitro p.r.n.
--- NOTE | 2020-05-29 23:35 | P.DS ---
Discharge Date: 05/13/20 Disposition: ROUTINE DISCHARGE Discharge Condition: GOOD Reason for Admission: Chest pain, elevated blood pressure Consultations: Cardiology - Problems (1) Unstable angina Status: Acute (2) Hyperlipidemia Status: Chronic Brief History of Present Illness: Patient is a 65-year-old female who came to the hospital with chest pain. Patient was found to have cardiac disease. Patient had a cardiac catheterization. Hospital Course: Patient was admitted to the hospital and had a heart catheterization with stent placed to the RCA. Patient will continue on antiplatelet therapy and statin therapy. Patient will discharged without patient follow with cardiology. Vital Signs/Physical Exam: Temp Pulse Resp BP Pulse Ox 98.7 F 73 16 149/67 H 96 05/13/20 12:00 05/13/20 12:00 05/13/20 12:00 05/13/20 12:00 05/13/20 12:00 General: Alert, In no apparent distress, Oriented x3 Laboratory Data at Discharge: WBC 8.40 K/uL (4.3-10.9) D 05/13/20 05:31 Hgb 13.3 g/dL (12.0-15.0) 05/13/20 05:31 Hct 38.4 % (36.0-45.0) 05/13/20 05:31 Plt Count 226 K/uL (152-406) 05/13/20 05:31 PT 10.6 SECONDS (9.5-12.5) 05/10/20 15:38 INR 0.92 05/10/20 15:38 Sodium 142 mmol/L (136-145) 05/13/20 05:31 Potassium 4.1 mmol/L (3.5-5.1) 05/13/20 05:31 BUN 24 mg/dL (7-18) H 05/13/20 05:31 Creatinine 0.63 mg/dL (0.55-1.3) 05/13/20 05:31 Glucose 104 mg/dL (74-106) 05/13/20 05:31 Magnesium 2.0 mg/dL (1.8-2.4) 05/10/20 15:38 Total Bilirubin 0.4 mg/dL (0.2-1.0) 05/11/20 04:40 AST 12 U/L (15-37) L 05/11/20 04:40 ALT 22 U/L (12-78) 05/11/20 04:40 Alkaline Phosphatase 68 U/L (45-117) 05/11/20 04:40 Troponin I < 0.02 ng/mL (0.0-0.045) 05/10/20 23:51 Triglycerides 126 mg/dL (<150) 05/11/20 04:40 Cholesterol 155 mg/dL (<200) 05/11/20 04:40 HDL Cholesterol 47 mg/dL (40-60) 05/11/20 04:40 Cholesterol/HDL Ratio 3.30 05/11/20 04:40 Home Medications: Aspirin 81 mg PO DAILY 05/10/20 lisinopriL [Lisinopril] 20 mg PO BID 05/10/20 Atorvastatin Calcium [Lipitor] 40 mg PO BEDTIME #30 tab 05/13/20 Clopidogrel Bisulfate [Plavix*] 75 mg PO DAILY #30 tablet 05/13/20 Metoprolol Tartrate [Lopressor] 50 mg PO BID #60 tab 05/13/20 New Medications: Atorvastatin Calcium [Lipitor] 40 mg PO BEDTIME #30 tab Metoprolol Tartrate [Lopressor] 50 mg PO BID #60 tab Clopidogrel Bisulfate [Plavix*] 75 mg PO DAILY #30 tablet Physician Discharge Instructions: -OK TO DC IV AND DC HOME -FOLLOW-UP WITH PCP IN 1-2 WEEKS -FOLLOW-UP WITH CARDIOLOGY IN 1-2 WEEKS -PLEASE MAKE SURE ALL DIAGNOSTIC STUDIES ARE AVAILABLE AND HAVE BEEN REVIEWED WITH PATIENT PRIOR TO DISCHARGE -RETURN TO THE ER IF symptoms worsened -CALL DR. OSUNA AT [phone] IF ANY QUESTIONS REGARDING HOSPITAL STAY -PLEASE CALL THE FLOOR AT [phone] IF ANY MEDICATION OR NURSING QUESTIONS Diet: AHA Activity: Fall precautions Followup: Richar Wray MD [ACTIVE - CAN ADMIT] - (Follow up in 2 weeks) NONE,NONE [Primary Care Provider] - Time spent managing pt's care (in minutes): 35
== END 2020-05-13 14:07 | disposition home or self-care (01) ==
LOC: ER 13:12 → ERHOLD 17:19 → 2ND 20:27
PROVIDERS: ADMIT Family Medicine; ATTEND Hospitalist
DX: I25.110 Atherosclerotic heart disease of native coronary artery with unstable angina pectoris (principal); E78.5 Hyperlipidemia, unspecified; Z95.5 Presence of coronary angioplasty implant and graft; I11.0 Hypertensive heart disease with heart failure; I50.9 Heart failure, unspecified; Z20.822 Contact with and (suspected) exposure to COVID-19; Z87.891 Personal history of nicotine dependence; R94.31 Abnormal electrocardiogram [ECG] [EKG]; E66.9 Obesity, unspecified
CPT/HCPCS: 93005 ×2; 93306; 85025 ×3; 80048 ×2; 36415 ×2; 83735; 85610; 80061; 80076; 85347 ×2; 84484 ×3; 82553 ×3; 80053; 83880; 71045; 93458; 94760 ×7; 99285; U0003; C1893; C1760; C1725; C9600; J0360 ×3; J2250; J3010; J2270; J0583; J7040; J7030; J1644 ×2; J2405; G0378

== ENCOUNTER 2020-06-07 03:01 | Emergency (ER) | payer OTHER ==
[2020-06-07] MEDS ORDERED: HEPARIN 5000 UNIT/ML 1 ML VIAL ONE (03:37)
[2020-06-07] MEDS ORDERED: HEPARIN/D5W 25,000 UNIT/500 ML BAG IV ONE (03:37)
--- NOTE | 2020-06-07 03:37 | ER ---
Nurse's Notes [facility] Name: Sheree Fuentes Age: 65 yrs Sex: Female : 1955 Arrival Date: 06/07/2020 Time: 03:03 Bed 3 Private MD: Diagnosis: ST elevation (STEMI) myocardial infarction of inferior wall;Essential (primary) hypertension;Obesity, unspecified Presentation: 06/07 03:05 Chief complaint: Patient states: chest pain and abdominal pain going to the left shoulder blade that started around midnight. Coronavirus screen: Client denies travel out of the [place] in the last 14 days. At this time, the client does not indicate any symptoms associated with coronavirus-19. Ebola Screen: Patient negative for fever greater than or equal to 101.5 degrees Fahrenheit, and additional compatible Ebola Virus Disease symptoms Patient denies exposure to infectious person. Initial Sepsis Screen: Does the patient meet any 2 criteria? No. Patient's initial sepsis screen is negative. Does the patient have a suspected source of infection? No. Patient's initial sepsis screen is negative. Risk Assessment: Do you want to hurt yourself or someone else? Patient reports no desire to harm self or others. Onset of symptoms was June 07, 2020. 03:05 Method Of Arrival: Wheelchair 03:05 Acuity: CHAD 3 Historical: - Allergies: 03:26 No Known Allergies; - Home Meds: 03:26 aspirin 81 mg Oral TbEC 1 tab once daily [Active]; hydrochlorothiazide 12.5 mg Oral cap wh 1 cap once daily [Active]; lisinopril 40 mg Oral tab 20 mg BID [Active]; meloxicam Oral [Active]; Simvastatin Oral [Active]; - PMHx: 03:26 CAD; Hernia; Hypertension; Myocardial infarction; - PSHx: 03:26 Heart stents; - Immunization history:: Adult Immunizations not up to date. - Social history:: Smoking status: Patient/guardian denies using. - Family history:: not pertinent. Screenin:27 Abuse screen: Denies threats or abuse. Denies injuries from another. Nutritional screening: No deficits noted. Tuberculosis screening: No symptoms or risk factors identified. Fall Risk None identified. Assessment: 03:28 General: Appears in no apparent distress. Behavior is calm, cooperative, appropriate wh for age. Pain: Complains of pain in chest Pain radiates to left shoulder Quality of pain is described as pressure, Pain began 3 hours ago. Neuro: Level of Consciousness is awake, alert, obeys commands, Oriented to person, place, time, situation, Appropriate for age. Cardiovascular: Reports chest pain, Heart tones S1 S2. Respiratory: Airway is patent Respiratory effort is even, unlabored, Respiratory pattern is regular, symmetrical, Breath sounds are clear bilaterally. GI: Abdomen is round non-distended. : No signs and/or symptoms were reported regarding the genitourinary system. EENT: No signs and/or symptoms were reported regarding the EENT system. Derm: Skin is intact, is healthy with good turgor, Skin is pink, warm \\T\\ dry. normal. Musculoskeletal: Circulation, motion, and sensation intact. 04:02 Reassessment: Patient appears in no apparent distress at this time. Dr. Rich from [address] called and updated about the patient's status. 04:25 Reassessment: Report given to Kelsey GARVEY from Sales Operations Coordinator. 04:46 Reassessment: report given to GURU Munson on CVICU . mg2 Vital Signs: 03:05 BP 183 / 98; Pulse 66; Resp 20; Temp 98.5; Pulse Ox 99% ; Pain 9/10; wh 03:22 Weight 110.6 kg; em 03:40 BP 192 / 107; Pulse 72; Resp 18; Pulse Ox 100% on R/A; mg2 03:55 BP 171 / 102; Pulse 60; Resp 18; Pulse Ox 97% on 2 lpm NC; mg2 04:00 BP 200 / 105; Pulse 78; Resp 18; Pulse Ox 99% on 2 lpm NC; mg2 04:11 BP 184 / 111; Pulse 65; Resp 18; Pulse Ox 100% on 2 lpm NC; Pain 10/10; mg2 04:24 BP 187 / 101; Pulse 78; Resp 18; Pulse Ox 98% on 2 lpm NC; mg2 ED Course: 03:03 Patient arrived in ED. am4 03:07 Pavan Beauchamp, GURU is Primary Nurse. mg2 03:09 Issac Tran MD is Attending Physician. trish 03:10 EKG done, by ED staff, reviewed by Issac Tran MD. wh 03:15 initiated a transfer with Karuna Hoffman from [facility] [place]. mw2 03:22 administrative approval given by Karuna Hoffman/ patient has been accepted to [address] senior cytogenetics laboratory director/ Dr. Proctor has accepted the patient in transfer. [facility] mw2 03:25 Triage completed. 03:27 Inserted saline lock: in right in left antecubital area, using aseptic technique. wh wrist, using aseptic technique. Blood collected. Patient maintains SpO2 saturation greater than 95% on room air. 03:28 [facility] mw2 03:29 Patient has correct armband on for positive identification. Placed in gown. Bed in low wh position. Call light in reach. Side rails up X 1. monitor worker on. Pulse ox on. NIBP on. 03:30 Arm band placed on right wrist. 03:36 XRAY Chest (1 view) In Process Unspecified. EDMS 03:41 [facility] called and stated "we won't be able to fly to your [facility] location but if you have ground EMS pick us up and bring us to your location, and take us back to the airport and we can fly them to the [facility].". 03:42 called [facility] bring them to our location. mw2 04:00 [facility] called back to inform us "the airplane pilot commercial looked at the weather [facility] won't be able to fly the patient to the [facility] we would have to land at [facility] then drive 13 miles to get to the [facility].". 04:01 called [facility] to transport patient to [facility]. mw2 04:25 No provider procedures requiring assistance completed. Patient transferred, IV remains in place. Administered Medications: 03:24 Drug: Heparin (AL-Bolus with thrombolytic) - HEParin 60 units/kg {Co-Signature: yousif mg2 (Anayeli Bonner RN).} Route: IVP; Site: left antecubital; 04:32 Follow up: Response: No adverse reaction 03:25 Drug: Heparin (AL Drip) 12 units/kg/hr - (HEParin 63671 units, D5W 500 ml) mg2 {Co-Signature: yousif Bonner RN).} Route: IV; Rate: calculated rate; Site: left antecubital; 03:28 Drug: Tenecteplase 50 mg {Co-Signature: yousif (Anayeli Bonner RN).} Route: IV; Rate: per em protocol; Site: left antecubital; 03:37 Drug: NS 0.9% 500 ml Route: IV; Rate: bolus; Site: left antecubital; mg2 03:38 Drug: PlaVIX (clopidogrel) 300 mg Route: PO; mg2 04:32 Follow up: Response: No adverse reaction 03:38 Drug: Pepcid 20 mg Route: IVP; Site: left antecubital; mg2 04:32 Follow up: Response: No adverse reaction 03:40 Drug: Aspirin Chewable Tablet 324 mg Route: PO; mg2 04:33 Follow up: Response: No adverse reaction 03:47 Drug: morphine 4 mg Route: IVP; Site: right wrist; wh 04:32 Follow up: Response: No adverse reaction 03:49 Drug: Zofran (Ondansetron) 4 mg Route: IVP; Site: right wrist; wh 04:31 Follow up: Response: No adverse reaction wh 04:32 Follow up: Response: No adverse reaction 03:51 Drug: Lopressor 2.5 mg Route: IVP; Site: right wrist; wh 04:26 Follow up: Response: No adverse reaction; Blood pressure is unchanged wh 04:10 Drug: Lopressor 2.5 mg Route: IVP; Site: right wrist; mg2 04:26 Follow up: Response: No adverse reaction; Blood pressure is unchanged 04:23 Drug: Lopressor 2.5 mg Route: IVP; Site: right wrist; mg2 04:32 Follow up: Response: No adverse reaction 04:23 Drug: morphine 4 mg Route: IVP; Site: right wrist; mg2 04:26 Follow up: Response: No adverse reaction; RASS: Alert and Calm (0) Outcome: 03:36 ER care complete, transfer ordered by MD. chambers 04:25 Transferred to [facility], Transfer form completed. X-rays sent w/ wh patient. Note: Report given to [facility] 04:25 Condition: stable 04:25 Instructed on the need for transfer. 04:29 Patient left the ED. mg2 Signatures: Dispatcher [employer] Issac Dumas MD MD cha Munoz, Edgar, RN RN em Habalo, GURU Guadalupe RN Godfrey Mittal [facility] Pavan Beauchamp RN RN mg2 Martinez, Ashley [facility] Anayeli Bonner RN
--- NOTE | 2020-06-07 03:37 | EDPHYS ---
Physician Documentation [facility] Name: Sheree Fuentes Age: 65 yrs Sex: Female : 1955 Arrival Date: 06/07/2020 Time: 03:03 Bed 3 Private MD: ED Physician Issac Tran HPI: 06/07 03:24 This 65 yrs old Female presents to ER via Unassigned with complaints of Chest trish Pain. 03:24 The patient or guardian reports chest pain that is located primarily in the substernal trish area, anterior chest wall, bilaterally. Onset: just prior to arrival. The pain does not radiate. Associated signs and symptoms: Pertinent positives: lightheadedness, shortness of breath. The chest pain is described as a heaviness, causing indigestion, a pressure. Duration: The patient or guardian reports a single episode, that is still ongoing. Severity of pain: At its worst the pain was moderate severe just prior to arrival, this morning, in the emergency department the pain is unchanged. The patient has not experienced similar symptoms in the past. Historical: - Allergies: 03:26 No Known Allergies; wh - Home Meds: 03:26 aspirin 81 mg Oral TbEC 1 tab once daily [Active]; hydrochlorothiazide 12.5 mg Oral cap wh 1 cap once daily [Active]; lisinopril 40 mg Oral tab 20 mg BID [Active]; meloxicam Oral [Active]; Simvastatin Oral [Active]; - PMHx: 03:26 CAD; Hernia; Hypertension; Myocardial infarction; - PSHx: 03:26 Heart stents; - Immunization history:: Adult Immunizations not up to date. - Social history:: Smoking status: Patient/guardian denies using. - Family history:: not pertinent. ROS: 03:24 Constitutional: Negative for fever, chills, and weight loss, Eyes: Negative for injury, trish pain, redness, and discharge, ENT: Negative for injury, pain, and discharge, Neck: Negative for injury, pain, and swelling, Respiratory: Negative for shortness of breath, cough, wheezing, and pleuritic chest pain, Abdomen/GI: Negative for abdominal pain, nausea, vomiting, diarrhea, and constipation, Back: Negative for injury and pain, : Negative for injury, bleeding, discharge, and swelling, MS/Extremity: Negative for injury and deformity, Skin: Negative for injury, rash, and discoloration, Neuro: Negative for headache, weakness, numbness, tingling, and seizure, Psych: Negative for depression, anxiety, suicide ideation, homicidal ideation, and hallucinations, Allergy/Immunology: Negative for hives, rash, and allergies, Endocrine: Negative for neck swelling, polydipsia, polyuria, polyphagia, and marked weight changes, Hematologic/Lymphatic: Negative for swollen nodes, abnormal bleeding, and unusual bruising. 03:24 Cardiovascular: Positive for chest pain, of the chest. Exam: 03:24 Constitutional: This is a well developed, well nourished patient who is awake, alert, trish and in no acute distress. Head/Face: Normocephalic, atraumatic. Eyes: Pupils equal round and reactive to light, extra-ocular motions intact. Lids and lashes normal. Conjunctiva and sclera are non-icteric and not injected. Cornea within normal limits. Periorbital areas with no swelling, redness, or edema. ENT: Nares patent. No nasal discharge, no septal abnormalities noted. Tympanic membranes are normal and external auditory canals are clear. Oropharynx with no redness, swelling, or masses, exudates, or evidence of obstruction, uvula midline. Mucous membranes moist. Neck: Trachea midline, no thyromegaly or masses palpated, and no cervical lymphadenopathy. Supple, full range of motion without nuchal rigidity, or vertebral point tenderness. No Meningismus. Cardiovascular: Regular rate and rhythm with a normal S1 and S2. No gallops, murmurs, or rubs. Normal PMI, no JVD. No pulse deficits. Respiratory: Lungs have equal breath sounds bilaterally, clear to auscultation and percussion. No rales, rhonchi or wheezes noted. No increased work of breathing, no retractions or nasal flaring. Abdomen/GI: Soft, non-tender, with normal bowel sounds. No distension or tympany. No guarding or rebound. No evidence of tenderness throughout. Back: No spinal tenderness. No costovertebral tenderness. Full range of motion. Female : Normal external genitalia. Skin: Warm, dry with normal turgor. Normal color with no rashes, no lesions, and no evidence of cellulitis. MS/ Extremity: Pulses equal, no cyanosis. Neurovascular intact. Full, normal range of motion. Neuro: Awake and alert, GCS 15, oriented to person, place, time, and situation. Cranial nerves II-XII grossly intact. Motor strength 5/5 in all extremities. Sensory grossly intact. Cerebellar exam normal. Normal gait. Psych: Awake, alert, with orientation to person, place and time. Behavior, mood, and affect are within normal limits. 03:24 Chest/axilla: Inspection: normal, Palpation: is normal, no acute changes, Axilla: are normal, no acute changes, Breasts: are normal, no acute changes, Lymph nodes: lymphadenopathy is not appreciated. 03:24 ECG was reviewed by the Attending Physician. Vital Signs: 03:05 BP 183 / 98; Pulse 66; Resp 20; Temp 98.5; Pulse Ox 99% ; Pain 9/10; wh 03:22 Weight 110.6 kg; em 03:40 BP 192 / 107; Pulse 72; Resp 18; Pulse Ox 100% on R/A; mg2 03:55 BP 171 / 102; Pulse 60; Resp 18; Pulse Ox 97% on 2 lpm NC; mg2 04:00 BP 200 / 105; Pulse 78; Resp 18; Pulse Ox 99% on 2 lpm NC; mg2 04:11 BP 184 / 111; Pulse 65; Resp 18; Pulse Ox 100% on 2 lpm NC; Pain 10/10; mg2 04:24 BP 187 / 101; Pulse 78; Resp 18; Pulse Ox 98% on 2 lpm NC; mg2 MDM: 03:28 Differential diagnosis: abnormal EKG, acute myocardial infarction, acute pericarditis, trish anxiety, coronary artery disease cholecystitis, Cholelithiasis myocarditis, pancreatitis, peptic ulcer disease, pulmonary embolus, unstable angina. HEART Score: History: Highly Suspicious (2), ECG: Significant ST-deviation (2), Age: > or = 65 years (2), Risk Factors: > or = 3 Risk factors for atherosclerotic disease (2), Troponin: < or = 1 x Normal Limit (0). The patient was given aspirin in the Emergency Department. The patient's deep vein thrombosis risk score was calculated as follows: Total Score: 0. This patient was found to be at low risk for a deep vein thrombosis by using the Well's assessment criteria. The patient's pulmonary embolism risk score was calculated as follows: Total Score: 0-2 points. This patient was found to be at low risk for a pulmonary embolism by using the Well's assessment criteria. PACO Risk Score: 1 - patient's age is greater or equal to 65 years, 1 - Three or more CAD risk factors, 1- Known CAD, 1 - ASA use in past 7 days, 1 - Recent [<24hrs] Severe Angina, 1 - ST deviation >0.5mm, TOTAL SCORE = 6. Data reviewed: vital signs, nurses notes, lab test result(s), EKG, radiologic studies, plain films. 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 Test interpretation: by ED physician or midlevel provider: ECG, plain radiologic studies. Counseling: I had a detailed discussion with the patient and/or guardian regarding: the historical points, exam findings, and any diagnostic results supporting the discharge/admit diagnosis, lab results, radiology results, the need to transfer to another facility, for higher level of care, [facility] does not immediately have the required specialist. 03:34 Patient medically screened. trish 06/07 03:08 Order name: Basic Metabolic Panel [facility] 06/07 03:08 Order name: CBC with Diff mg2 06/07 03:08 Order name: LFT's [facility] 06/07 03:08 Order name: Magnesium mg2 06/07 03:08 Order name: NT PRO-BNP [facility] 06/07 03:08 Order name: PT-INR [facility] 06/07 03:08 Order name: Troponin (emerg Dept Use Only) [facility] 06/07 03:08 Order name: XRAY Chest (1 view) [facility] 06/07 03:08 Order name: Basic Metabolic Panel [facility] 06/07 03:08 Order name: CBC with Automated Diff [facility] 06/07 03:08 Order name: Liver (Hepatic) Function [facility] 06/07 03:08 Order name: Magnesium [facility] 06/07 03:08 Order name: EKG; Complete Time: 03:08 mg2 06/07 03:08 Order name: Cardiac monitoring; Complete Time: 03:38 mg2 06/07 03:08 Order name: EKG - Nurse/Tech; Complete Time: 03:38 mg2 06/07 03:08 Order name: IV Saline Lock; Complete Time: 03:38 mg2 06/07 03:08 Order name: Labs collected and sent; Complete Time: 03: mg2 06/07 03:08 Order name: O2 Per Protocol; Complete Time: : mg2 06/07 03:08 Order name: O2 Sat Monitoring; Complete Time: : mg2 06/07 03:23 Order name: Misc. Order: zoll pads on; Complete Time: :37 trish 06/07 03:23 Order name: IV Saline Lock - Large Bore; Complete Time: 03:29 trish EC:24 Rate is 62 beats/min. Rhythm is regular. QRS Termo is Normal. NH interval is normal. QRS trish interval is normal. QT interval is normal. No Q waves. T waves are Normal. ST Segment is elevated in leads II, III, aVF. Clinical impression: Inferior AK - acute. Administered Medications: Drug: Heparin (AK-Bolus with thrombolytic) - HEParin 60 units/kg {Co-Signature: [facility] (Anayeli Bonner RN).} Route: IVP; Site: left antecubital; 04:32 Follow up: Response: No adverse reaction 03:25 Drug: Heparin (AK Drip) 12 units/kg/hr - (HEParin 17632 units, D5W 500 ml) mg2 {Co-Signature: (Anayeli Bonner RN).} Route: IV; Rate: calculated rate; Site: left antecubital; 03:28 Drug: Tenecteplase 50 mg {Co-Signature: (Anayeli Bonner RN).} Route: IV; Rate: per em protocol; Site: left antecubital; :37 Drug: NS 0.9% 500 ml Route: IV; Rate: bolus; Site: left antecubital; mg2 03:38 Drug: PlaVIX (clopidogrel) 300 mg Route: PO; mg2 04:32 Follow up: Response: No adverse reaction 03:38 Drug: Pepcid 20 mg Route: IVP; Site: left antecubital; mg2 04:32 Follow up: Response: No adverse reaction 03:40 Drug: Aspirin Chewable Tablet 324 mg Route: PO; mg2 04:33 Follow up: Response: No adverse reaction 03:47 Drug: morphine 4 mg Route: IVP; Site: right wrist; wh 04:32 Follow up: Response: No adverse reaction wh 03:49 Drug: Zofran (Ondansetron) 4 mg Route: IVP; Site: right wrist; wh 04:31 Follow up: Response: No adverse reaction wh 04:32 Follow up: Response: No adverse reaction 03:51 Drug: Lopressor 2.5 mg Route: IVP; Site: right wrist; wh 04:26 Follow up: Response: No adverse reaction; Blood pressure is unchanged wh 04:10 Drug: Lopressor 2.5 mg Route: IVP; Site: right wrist; mg2 04:26 Follow up: Response: No adverse reaction; Blood pressure is unchanged wh 04:23 Drug: Lopressor 2.5 mg Route: IVP; Site: right wrist; mg2 04:32 Follow up: Response: No adverse reaction wh 04:23 Drug: morphine 4 mg Route: IVP; Site: right wrist; mg2 04:26 Follow up: Response: No adverse reaction; RASS: Alert and Calm (0) Disposition: 03:28 [facility] Disposition: 06/07/20 03:36 Transfer ordered to [facility]. Diagnosis are ST elevation (STEMI) myocardial infarction of inferior wall, Essential (primary) hypertension, Obesity, unspecified. - Reason for transfer: Higher level of care. 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 - Condition is Critical. - Problem is new. - Symptoms have improved. Critical care time excluding procedures: :28 Critical care time: Bedside Care: 30 minutes, Consultation: 10 minutes, [facility] Intervention: 5 minutes. Total time: 45 minutes Signatures: Dispatcher [employer] Issac Dumas MD MD cha Munoz, Edgar, RN RN em Habalo, Winsy, RN RN Pavan Beauchamp RN RN mg2 Winsy Habalo RN Corrections: (The following items were deleted from the chart) 04:29 03:36 06/07/2020 03:36 Transfer ordered to [facility]. mg2 Diagnosis is ST elevation (STEMI) myocardial infarction of inferior wall; Essential (primary) hypertension; Obesity, unspecified. Reason for transfer: Higher level of care. 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 Condition is Critical. Problem is new. Symptoms have improved. [facility]
[2020-06-07] MEDS ORDERED: TENECTEPLASE 50 MG/10 ML VIAL IV ONE (03:40)
[2020-06-07] MEDS ORDERED: ASPIRIN EC 81 MG TAB PO ONE (03:48)
[2020-06-07] MEDS ORDERED: CLOPIDOGREL 75 MG TABLET ONE (03:48)
[2020-06-07] MEDS ORDERED: FAMOTIDINE 20 MG/2 ML VIAL IV ONE (03:48)
[2020-06-07] MEDS ORDERED: NA CHLORIDE 0.9% 500 ML ONE (03:48)
[2020-06-07] MEDS ORDERED: MORPHINE 4 MG/ML SYR ONE ×2 (04:05→04:32)
[2020-06-07] MEDS ORDERED: METOPROLOL TARTRATE 5 MG/5 ML INJ IV ONE ×2 (04:05→04:32)
[2020-06-07] MEDS ORDERED: ONDANSETRON 4 MG/2 ML VIAL ONE (04:05)
[2020-06-07 04:14] LABS: Protime INR 0.92
[2020-06-07 04:17] LABS: Absolute Lymphocytes (CBC) 1.9 K/uL (0.7-4.9); Basophils % 0.5 % (0-1.3); Hematocrit 42.4 % (36.0-45.0); Lymphocytes % 17.3 % (15.3-44.8); MPV 8.8 fL (7.6-11.3); RBC Red Blood Cell Count 4.32 M/uL (3.86-4.86)
[2020-06-07 04:31] LABS: ALT/SGPT 31 U/L (12-78); AST/SGOT 19 U/L (15-37); Albumin 3.8 g/dL (3.4-5.0); Alkaline Phosphatase 82 U/L (45-117); BUN Blood Urea Nitrogen 33 mg/dL (7-18); Bicarbonate 27 mmol/L (21-32); Bilirubin Direct 0.1 mg/dL (0-0.2); Bilirubin Total 0.5 mg/dL (0.2-1.0); Glucose Level 173 mg/dL (74-106); Magnesium 2.2 mg/dL (1.8-2.4); NT PRO-BNP 76 pg/mL (<125); Potassium 3.8 mmol/L (3.5-5.1); Protein, Total 8.3 g/dL (6.4-8.2); Sodium Level 142 mmol/L (136-145); Troponin (Emerg Dept Use Only) < 0.02 ng/mL (0.0-0.045)
[2020-06-07 04:34] VITALS: TEMP 98.5
[2020-06-07 04:40] VITALS: BP 187/101; O2SAT 98
--- NOTE | 2020-06-07 07:02 | EKG ---
Test Date: 2020-06-07 Test Time: 03:12:45 Entry Level Installation Technician: MEASUREMENT RESULTS: Intervals: Rate: 62 DE: 138 QRSD: 100 QT: 436 QTc: 442 [place]: P: 43 DE: 138 QRS: 50 T: 96 INTERPRETIVE STATEMENTS: Sinus rhythm with occasional premature ventricular complexes and premature atrial complexes Inferior infarct, possibly acute T wave abnormality, consider lateral ischemia ACUTE [place] / STEMI Consider right ventricular involvement in acute inferior infarct Abnormal ECG Compared to ECG 05/12/2020 16:31:49 Atrial premature complex(es) now present Ventricular premature complex(es) now present T-wave abnormality now present Possible ischemia now present Sinus bradycardia no longer present Sinus arrhythmia no longer present Myocardial infarct finding still present Electronically Signed On 06-07-20 07:02:12 CDT by Richar Wray
--- NOTE | 2020-06-07 08:22 | RAD REPORT ---
EXAM DESCRIPTION: Rosette Single View06/07/2020 3:36 am CLINICAL HISTORY: Chest pain COMPARISON: April 2020 FINDINGS: Lungs appear grossly clear. Heart is normal size. If patient's symptoms persist PA and la teral chest series is recommended
--- NOTE | 2020-06-08 07:21 | EKG ---
Test Date: 2020-06-07 Test Time: 04:09:59 Doctor'S Assistant: ASHLEY MEASUREMENT RESULTS: Intervals: Rate: 65 [place]: QRSD: 114 QT: 424 QTc: 440 [place]: P: [place]: QRS: 72 T: 140 INTERPRETIVE STATEMENTS: sinus rhythm Inferior infarct, possibly acute Cannot rule out Anterior infarct, age undetermined ACUTE [place] / STEMI Consider right ventricular involvement in acute inferior infarct Abnormal ECG Compared to ECG 06/07/2020 03:12:45 Atrial premature complex(es) no longer present Ventricular premature complex(es) no longer present T-wave abnormality no longer present Possible ischemia no longer present Myocardial infarct finding still present Electronically Signed On 06-08-20 07:19:03 CDT by Richar Wray
== END 2020-06-07 04:29 | disposition short-term general hospital (02) ==
LOC: ER 03:01
DX: I21.19 ST elevation (STEMI) myocardial infarction involving other coronary artery of inferior wall (principal); I10 Essential (primary) hypertension; E66.9 Obesity, unspecified; I25.2 Old myocardial infarction; Z95.818 Presence of other cardiac implants and grafts; Z79.82 Long term (current) use of aspirin
CPT/HCPCS: 93005 ×2; 85025; 80048; 36415; 83735; 85610; 80076; 84484; 83880; 71045; J1644 ×2; J3101; J7040; J2405; 92977; 99285

== ENCOUNTER 2024-03-16 14:11 | Inpatient (IN) | payer OTHER ==
[2024-03-16] MEDS ORDERED: MAGNESIUM SULFATE 1 gm IVPB 1 GM/100 ML BAG IV ONE (14:44)
[2024-03-16] MEDS ORDERED: METOPROLOL TARTRATE 5 MG/5 ML INJ IV ONE (14:44)
[2024-03-16 14:52] LABS: Absolute Eosinophils 0.1 K/uL (0-0.5); Absolute Lymphocytes (CBC) 1.9 K/uL (0.7-4.9); Absolute Monocytes 0.6 K/uL (0.1-1.3); Absolute Neutrophil 3.6 K/uL (1.8-8.0); Basophils % 0.6 % (0-1.3); Eosinophils % 1.4 % (0-4.4); Hemoglobin 15.9 g/dL (12.0-15.0); Lymphocytes % 30.8 % (15.3-44.8); MCHC 33.8 g/dL (32.0-36.0); MCV 97.5 fL (80-100); MPV 8.4 fL (7.6-11.3); Monocytes % 8.8 % (3.3-12.3); Neutrophils % 58.4 % (41.7-73.7); Nucleated Red Blood Cells % 0.1 % (0-0); Platelets 217 thou/uL (152-406); RBC Red Blood Cell Count 4.83 M/uL (3.86-4.86); Red Cell Distribution Width 13.7 % (12.1-15.2)
[2024-03-16 15:01] LABS: PT Prothrombin Time 10.9 SECONDS (9.4-12.5); Protime INR 0.97
[2024-03-16 15:11] LABS: Anion Gap 8.5 mEq/L (5.0-15.0); Potassium 3.5 mEq/L (3.5-5.1)
[2024-03-16] MEDS ORDERED: METOPROLOL TAR 25 MG TAB ONE (15:14)
[2024-03-16 15:21] LABS: Troponin High Sensitivity 65.5 pg/mL (<58.9)
[2024-03-16] MEDS ORDERED: ASPIRIN 325 MG TAB ONE (15:39)
--- NOTE | 2024-03-16 15:42 | ER ---
Nurse's Notes [facility] Name: Sheree Fuentes Age: 69 yrs Sex: Female : 1955 Arrival Date: 03/16/2024 Time: 14:11 Bed 2 Private MD: Diagnosis: Persistent atrial fibrillation-with RVR Presentation: 03/16 14:20 Chief complaint: Patient states: pulse ox showed heart rate of 160, bp monitor would ko1 not take bp. Coronavirus screen: At this time, the client does not indicate any symptoms associated with coronavirus-19. Ebola Screen: No symptoms or risks identified at this time. Initial Sepsis Screen: Does the patient meet any 2 criteria? No. Patient's initial sepsis screen is negative. Does the patient have a suspected source of infection? No. Patient's initial sepsis screen is negative. Risk Assessment: Do you want to hurt yourself or someone else? Patient reports no desire to harm self or others. Onset of symptoms was March 16, 2024. Care prior to arrival: Medication(s) given: Nitroglycerin, 0.4 mg SL x 1. 14:20 Method Of Arrival: Ambulatory ko1 14:20 Acuity: CHAD 2 ko1 Triage Assessment: 14:25 General: Appears in no apparent distress. Behavior is calm, cooperative, appropriate ko1 for age. Pain: Denies pain. Historical: - Allergies: 14:25 No Known Allergies; ko1 - PMHx: 14:25 CAD; Hernia; Hypertension; Myocardial infarction; ko1 - PSHx: 14:25 Stented artery; Repair of inguinal hernia; ko1 - Immunization history:: Adult Immunizations unknown. - Infectious Disease History:: Denies. - Social history:: Smoking status: Patient/guardian denies using tobacco, but has a distant history of tobacco abuse. - Family history:: not pertinent. - Hospitalizations: : No recent hospitalization is reported. Screenin:46 [facility] ED Fall Risk Assessment (Adult) History of falling in the last 3 months, iw including since admission No falls in past 3 months (0 pts) Confusion or Disorientation No (0 pts) Intoxicated or Sedated No (0 pts) Impaired Gait No (0 pts) Mobility Assist Device Used No (0 pt) Altered Elimination No (0 pt) Score/Fall Risk Level 0 - 2 = Low Risk Oriented to surroundings, Maintained a safe environment. Abuse screen: Denies threats or abuse. Nutritional screening: No deficits noted. Tuberculosis screening: No symptoms or risk factors identified. Assessment: 14:45 General: Appears in no apparent distress. Behavior is calm, cooperative. Pain: Denies iw pain. Neuro: Level of Consciousness is awake, alert, obeys commands, Oriented to person, place, time, situation, Moves all extremities. Full function. Cardiovascular: Reports lightheadedness, palpitations, Denies chest pain, Patient's skin is warm and dry. Rhythm is atrial fibrillation with rapid ventricular response. Respiratory: Respiratory effort is even, unlabored, Respiratory pattern is regular, symmetrical. Derm: Skin is intact, is healthy with good turgor. Musculoskeletal: Range of motion: intact in all extremities. 14:46 Reassessment: Patient appears in no apparent distress at this time. iw 15:18 Reassessment: pt converted to NSR on monitor. iw 15:20 Reassessment: new EKG provided to provider. rs5 16:26 Reassessment: Patient and/or family updated on plan of care and expected duration. Pain rs5 level reassessed. Patient is alert, oriented x 3, equal unlabored respirations, skin warm/dry/pink. GI: Abdomen is round non-distended. : No signs and/or symptoms were reported regarding the genitourinary system. EENT: No signs and/or symptoms were reported regarding the EENT system. 17:44 Reassessment: Patient and/or family updated on plan of care and expected duration. Pain rs5 level reassessed. Patient is alert, oriented x 3, equal unlabored respirations, skin warm/dry/pink. 18:35 Reassessment: Patient and/or family updated on plan of care and expected duration. Pain rs5 level reassessed. Patient is alert, oriented x 3, equal unlabored respirations, skin warm/dry/pink. Vital Signs: 14:20 BP 165 / 110; Pulse 130; Resp 19; Temp 97.2; Pulse Ox 95% on R/A; ko1 14:46 BP 161 / 94; Pulse 118; Resp 19; Pulse Ox 95% on R/A; iw 14:57 BP 165 / 92; Pulse 114; Resp 19; Pulse Ox 94% on R/A; iw 15:04 BP 155 / 88; Pulse 110; Resp 18; Pulse Ox 93% on R/A; rs5 15:18 BP 168 / 84; Pulse 75; Resp 18; Pulse Ox 92% on R/A; Pain 0/10; iw 16:27 BP 155 / 80; Pulse 77; Resp 17; Pulse Ox 95% on R/A; rs5 18:36 BP 157 / 70; Pulse 74; Resp 17; Pulse Ox 96% on R/A; rs5 15:18 Pain Scale: Adult iw ED Course: 14:14 Patient arrived in ED. mr 14:25 Triage completed. ko1 14:25 Arm band placed on right wrist. Patient placed in an exam room, on a stretcher, on ko1 oxygen, on monitor technician, on pulse oximetry, Patient notified of wait time. 14:28 Janak Castro MD is Attending Physician. rn 14:30 Patient has correct armband on for positive identification. Placed in gown. Bed in low rs5 position. Call light in reach. Side rails up X2. 14:42 Praneeth Zambrano, GURU is Primary Nurse. rs5 14:45 Initial lab(s) drawn, by ar, sent to lab. Inserted saline lock: 22 gauge in right iw forearm, using aseptic technique. Blood collected. Flushed with 10 mL NS. 15:00 No provider procedures requiring assistance completed. rs5 15:41 Geoffrey Castro MD is Hospitalizing Provider. rn 16:01 XRAY Chest (1 view) In Process Unspecified. EDMS Administered Medications: 14:45 Drug: Metoprolol IVP 5 mg IVP every 5 minutes; Hold for SBP < 100 or HR < 60. x3 Route: rs5 IVP; Site: right forearm; 14:50 Drug: Metoprolol IVP 5 mg IVP every 5 minutes; Hold for SBP < 100 or HR < 60. x3 Route: rs5 IVP; Site: right forearm; 14:55 Drug: Metoprolol IVP 5 mg IVP every 5 minutes; Hold for SBP < 100 or HR < 60. x3 Route: rs5 IVP; Site: right forearm; 15:30 Follow up: Response: No adverse reaction; Cardiac rhythm changed rs5 15:04 Drug: Magnesium Sulfate IVPB 1 grams IVPB once over 1 hrs Route: IVPB; Infused Over: 1 rs5 hrs; Site: right forearm; 16:01 Follow up: Response: No adverse reaction; IV Status: Completed infusion; IV Intake: rs5 100ml 15:37 Not Given (Physician Discretion): [id number] mg PO once iw 15:45 Drug: Aspirin PO 325 mg PO once Route: PO; iw 16:27 Follow up: Response: No adverse reaction rs5 Medication: 14:46 VIS not applicable for this client. iw Intake: 16:01 IV: 100ml; Total: 100ml. rs5 Outcome: 15:41 Decision to Hospitalize by Provider. rn 18:59 Patient left the ED. iw Signatures: Dispatcher [employer] EDMS Lila Kemp, Reg Reg Chloe Quintanilla RN RN iw Janak Castro MD MD rn Oliver, Kathy, RN RN ko1 Sotelo, Ricky, RN RN rs5
--- NOTE | 2024-03-16 15:42 | EDPHYS ---
Physician Documentation [facility] Name: Sheree Fuentes Age: 69 yrs Sex: Female : 1955 Arrival Date: 03/16/2024 Time: 14:11 Bed 2 Private MD: ED Physician Janak Castro HPI: 03/16 14:36 This 69 yrs old Female presents to ER via Ambulatory with complaints of High heart rate.rn 14:36 The patient presents with a history of irregular heart beat, heart racing. Context: The rn symptoms occur at rest. Onset: The symptoms/episode began/occurred this morning. Modifying factors: The symptoms are aggravated by nothing. The symptoms are alleviated by nothing. Severity of symptoms: At their worst the symptoms were moderate in the emergency department the symptoms are unchanged. The patient has not experienced similar symptoms in the past. Historical: - Allergies: 14:25 No Known Allergies; ko1 - PMHx: 14:25 CAD; Hernia; Hypertension; Myocardial infarction; ko1 - PSHx: 14:25 Stented artery; Repair of inguinal hernia; ko1 - Immunization history:: Adult Immunizations unknown. - Infectious Disease History:: Denies. - Social history:: Smoking status: Patient/guardian denies using tobacco, but has a distant history of tobacco abuse. - Family history:: not pertinent. - Hospitalizations: : No recent hospitalization is reported. ROS: 14:36 Constitutional: Negative for fever, chills, and weight loss, Cardiovascular: Positive rn for palpitations and heart racing Respiratory: Positive for shortness of breath Abdomen/GI: Negative for abdominal pain, nausea, vomiting, diarrhea, and constipation, MS/Extremity: Negative for injury and deformity, Skin: Negative for injury, rash, and discoloration, Neuro: Negative for headache, weakness, numbness, tingling, and seizure, Exam: 14:36 Constitutional: Appears anxious Head/Face: Normocephalic, atraumatic. Cardiovascular: rn Tachycardic, irregular Respiratory: Mild tachypnea, speaking full sentences MS/ Extremity: Pulses equal, no cyanosis. Neurovascular intact. Full, normal range of motion. Equal circumference. Neuro: Awake and alert, GCS 15 Vital Signs: 14:20 BP 165 / 110; Pulse 130; Resp 19; Temp 97.2; Pulse Ox 95% on R/A; ko1 14:46 BP 161 / 94; Pulse 118; Resp 19; Pulse Ox 95% on R/A; iw 14:57 BP 165 / 92; Pulse 114; Resp 19; Pulse Ox 94% on R/A; iw 15:04 BP 155 / 88; Pulse 110; Resp 18; Pulse Ox 93% on R/A; rs5 15:18 BP 168 / 84; Pulse 75; Resp 18; Pulse Ox 92% on R/A; Pain 0/10; iw 16:27 BP 155 / 80; Pulse 77; Resp 17; Pulse Ox 95% on R/A; rs5 18:36 BP 157 / 70; Pulse 74; Resp 17; Pulse Ox 96% on R/A; rs5 15:18 Pain Scale: Adult iw MDM: 14:28 Medical Screening Exam initiated rn 15:39 Differential diagnosis: arrythmia, dehydration, stress disorder. Data reviewed: vital rn signs, nurses notes, lab test result(s), EKG, radiologic studies, plain films, and as a result, I will admit patient. Consideration of Admission/Observation Patient was admitted/placed on observation. Escalation of care including admission/observation considered. Independent interpretation of the following test(s) in the Emergency Department EKG: See my EKG interpretation above X-Ray: My interpretation is Chest x-ray images negative for pneumonia per my interpretation. Care significantly affected by the following chronic conditions: Hypertension, Congestive Heart Failure, Chronic Obstructive Pulmonary Disease. Counseling: I had a detailed discussion with the patient and/or guardian regarding the historical points, exam findings, and any diagnostic results supporting the discharge/admit diagnosis, lab results, radiology results, the need for further work-up and treatment in the hospital. Response to treatment: the patient's symptoms have markedly improved after treatment, and as a result, I will admit patient. ED course: Patient with atrial fibrillation and rapid ventricular rate, improved with IV metoprolol, giving p.o. metoprolol and IV magnesium. This is new onset atrial fibrillation. Patient is under the impression she is on a blood thinner but cannot remember the name also takes baby aspirin and metoprolol at home. Will admit to hospitalist service for further care with cardiology consultation.. 15:39 ED course: I personally spent 35 minutes engaged in work directly related to the rn individual patient's care. This does not include any time spent performing procedures. The patient has been deemed critically ill because of new onset A-fib RVR requiring IV rate control, IV magnesium, and organization of admission to hospital. 16:20 ED course: Repeat x-ray after metoprolol and magnesium shows conversion to sinus rn rhythm, heart rate 71, no signs of ischemia. Does show nonspecific T wave inversions in inferior and lateral leads.. 03/16 14:35 Order name: Basic Metabolic Panel; Complete Time: 15:24 rn 03/16 14:35 Order name: CBC with Diff; Complete Time: 15:24 rn 03/16 14:35 Order name: NT PRO-BNP; Complete Time: 15:24 rn 03/16 14:35 Order name: PT-INR; Complete Time: 15:24 rn 03/16 14:35 Order name: Troponin HS; Complete Time: 15:24 rn 03/16 16:50 Order name: Urinalysis w/ reflexes EDND 03/16 16:50 Order name: Basic Metabolic Panel [facility] 03/16 16:50 Order name: Basic Metabolic Panel [facility] 03/16 16:50 Order name: CBC with Automated Diff [facility] 03/16 16:50 Order name: CBC with Automated Diff [facility] 03/16 16:50 Order name: Comprehensive Metabolic Panel [facility] 03/16 16:50 Order name: Comprehensive Metabolic Panel [facility] 03/16 16:50 Order name: Lipid Profile [facility] 03/16 16:50 Order name: Lipid Profile [facility] 03/16 16:50 Order name: NT PRO-BNP [facility] 03/16 16:50 Order name: NT PRO-BNP [facility] 03/16 16:50 Order name: Phosphorus [facility] 03/16 16:50 Order name: Phosphorus [facility] 03/16 16:50 Order name: Troponin High Sensitivity [facility] 03/16 16:50 Order name: Troponin High Sensitivity [facility] 03/16 16:50 Order name: Troponin High Sensitivity [facility] 03/16 16:50 Order name: Troponin High Sensitivity [facility] 03/16 14:35 Order name: XRAY Chest (1 view); Complete Time: 16:38 rn 03/16 16:48 Order name: CONS Physician Consult [facility] 03/16 14:35 Order name: Cardiac monitoring; Complete Time: 14:54 rn 03/16 14:35 Order name: EKG - Nurse/Tech; Complete Time: 14:45 rn 03/16 14:35 Order name: IV Saline Lock; Complete Time: 14:45 rn 03/16 14:35 Order name: Labs collected and sent; Complete Time: 14:45 rn 03/16 14:35 Order name: O2 Per Protocol; Complete Time: 14:45 rn 03/16 14:35 Order name: O2 Sat Monitoring; Complete Time: 14:45 rn Administered Medications: 14:45 Drug: Metoprolol IVP 5 mg IVP every 5 minutes; Hold for SBP < 100 or HR < 60. x3 Route: rs5 IVP; Site: right forearm; 14:50 Drug: Metoprolol IVP 5 mg IVP every 5 minutes; Hold for SBP < 100 or HR < 60. x3 Route: rs5 IVP; Site: right forearm; 14:55 Drug: Metoprolol IVP 5 mg IVP every 5 minutes; Hold for SBP < 100 or HR < 60. x3 Route: rs5 IVP; Site: right forearm; 15:30 Follow up: Response: No adverse reaction; Cardiac rhythm changed rs5 15:04 Drug: Magnesium Sulfate IVPB 1 grams IVPB once over 1 hrs Route: IVPB; Infused Over: 1 rs5 hrs; Site: right forearm; 16:01 Follow up: Response: No adverse reaction; IV Status: Completed infusion; IV Intake: rs5 100ml 15:37 Not Given (Physician Discretion): [id number] mg PO once iw 15:45 Drug: Aspirin PO 325 mg PO once Route: PO; iw 16:27 Follow up: Response: No adverse reaction rs5 Disposition Summary: 03/16/24 15:41 Hospitalization Ordered Notes: Hospitalization Status: Inpatient Admission rn Provider: Geoffrey Castro rn [facility] Condition: Stable rn Problem: new rn Symptoms: have improved rn Bed/Room Type: Standard rn Room Assignment: 217(03/16/24 17:56) bc6 Diagnosis - Persistent atrial fibrillation - with RVR rn Forms: - Medication Reconciliation Form rn - SBAR form rn - Leadership Thank You Letter architecture intern time excluding procedures: 15:39 Critical care time: Bedside Care: 35 minutes. Total time: 35 minutes rn Signatures: Dispatcher [employer] Chloe Johnson RN RN iw Janak Castro MD MD rn Oliver, Kathy, RN RN ko1 Praneeth Zambrano, RN RN rs5 Helen Cordova6 Corrections: (The following items were deleted from the chart) 14:36 14:36 BASIC METABOLIC PANEL+C.LAB.BRZ ordered. EDMS EDMS 14:36 14:36 CBC+H.LAB.BRZ ordered. EDMS EDMS 14:36 14:36 PROBNP+C.LAB.BRZ ordered. EDMS EDMS 14:36 14:36 PROTIME (+INR)+COAG.LAB.BRZ ordered. EDMS EDMS 14:36 14:36 Troponin High Sensitivity+C.LAB.BRZ ordered. EDMS EDMS 14:36 14:36 Chest Single View+RAD.RAD.BRZ ordered. EDMS EDMS 17:56 15:41 rn bc6
--- NOTE | 2024-03-16 16:36 | RAD REPORT ---
Procedure: Chest Single View HISTORY: Palpitations COMPARISON: 2021 FINDINGS: The lungs appear clear of acute infiltrate. No significant pleural effusion noted. The heart is normal size. IMPRESSION: No acute abnormality is displayed.
[2024-03-16] MEDS: METOPROLOL TAR 25 MG TAB PO ONE (17:05)
[2024-03-16 19:26] VITALS: BMI 42.6
[2024-03-16] MEDS: ATORVASTATIN 40 MG TAB PO SCH (20:38)
[2024-03-16] MEDS: HYDRALAZINE HCL 20 MG/ML VIAL IV PRN (22:32)
[2024-03-16 22:56] LABS: Specific Gravity 1.018 (1.005-1.030); Sqamous Epithelial None Seen /HPF (None Seen); Urine Bacteria None Seen /HPF (<20); Urine Bilirubin NEGATIVE (Negative); Urine Blood Negative (Negative); Urine Clarity Clear (Clear); Urine Color Light-Yellow (Yellow); Urine Culture Reflex Order NOT NEEDED; Urine Glucose NEGATIVE (Negative); Urine Ketones NEGATIVE (Negative); Urine Microscopic Reflex YN ORDER UMIC; Urine Nitrite NEGATIVE (Negative); Urine Protein NEGATIVE (Negative); Urine RBC None Seen /HPF (None Seen); Urine Urobilinogen Normal (Normal); Urine WBC <5 /HPF (<5)
[2024-03-17 05:06] LABS: Absolute Eosinophils 0.1 K/uL (0-0.5); Absolute Lymphocytes (CBC) 2.5 K/uL (0.7-4.9); Absolute Monocytes 0.8 K/uL (0.1-1.3); Absolute Neutrophil 3.7 K/uL (1.8-8.0); Basophils % 0.6 % (0-1.3); Eosinophils % 1.8 % (0-4.4); Hematocrit 40.7 % (36.0-45.0); Hemoglobin 14.2 g/dL (12.0-15.0); Lymphocytes % 34.5 % (15.3-44.8); MCH 33.8 pg (27.0-35.0); MCHC 34.8 g/dL (32.0-36.0); MCV 96.9 fL (80-100); MPV 8.2 fL (7.6-11.3); Neutrophils % 52.1 % (41.7-73.7); Nucleated Red Blood Cells % 0.1 % (0-0); Platelets 240 thou/uL (152-406); Red Cell Distribution Width 13.5 % (12.1-15.2)
[2024-03-17] MEDS: METOPROLOL TAR 25 MG TAB PO SCH ×2 (05:09→17:55)
[2024-03-17] MEDS: Enoxaparin 120 MG/0.8 ML SYR SQ SCH (05:09)
[2024-03-17 05:31] LABS: Albumin 2.9 g/dL (3.4-5.0); Albumin/Globulin Ratio 0.8 (1.1-1.8); Anion Gap 10.8 mEq/L (5.0-15.0); Bilirubin Total 0.7 mg/dL (0.2-1.0); Globulin 3.5 g/dL (2.3-3.5); Phosphorus 4.5 mg/dL (2.5-4.9); Potassium 3.8 mEq/L (3.5-5.1); Protein, Total 6.4 g/dL (6.4-8.2)
--- NOTE | 2024-03-17 07:21 | P.HP ---
Certification for Inpatient Patient admitted to: Inpatient Practitioner: I am a practitioner with admitting privileges, knowledge of patient current condition, hospital course, and medical plan of care. Services: Services provided to patient in accordance with Admission requirements found in Title 42 Section 412.3 of the Code of Federal Regulations Patient History Date of Service: 03/17/24 Reason for admission: Afib RVR History of Present Illness: 69 year old female with past medical history of ND, CAD s/p multiple stents, CHF, HTN, bronchitis, osteoarthritis Presented to shortness of breath and pa lpitations that started when she woke up.She denies chest pain, or chest pressure. She reports feeling short of breath and heart racing that was getting progressively worse today. She denies history of similar symptoms, no history of afib RVR, she reports being on metoprolol with medication compliance. she reports having cardiac stents. she reports previous ECHO in the last year. She denies fever, cough, edema, dizziness, EKG on arrival to ER Afib RVR HR 160, she was treated with metoprol IV, and heartreate responded well. <100. plan to admit for afib RVR, NSTEMI with cardiology to consult, Allergies No Known Allergies Allergy (Verified 03/16/24 19:26) Home Medications: Aspirin Chewable [Aspirin Chewable*] 81 mg PO DAILY 03/16/24 Atorvastatin Calcium [Lipitor] 40 mg PO BEDTIME 03/16/24 Furosemide [Lasix*] 10 mg PO DAILY PRN 03/16/24 Lisinopril [Zestril] 40 mg PO DAILY 03/16/24 Metoprolol Succinate [Toprol Xl] 25 mg PO DAILY 03/16/24 Prasugrel HCl 10 mg PO DAILY 03/16/24 Umeclidinium Brm/Vilanterol Tr [Anoro Ellipta 62.5-25 Mcg INH] 1 puff IH DAILY 03/16/24 - Past Medical/Surgical History Has patient received pneumonia vaccine in the past: Yes Diabetic: No -: Hypertension, -: HLD -: CAD -: CHF -: ND -: heart stent x 2013 -: Hernia surgery -: stent x1 2020 - Family History Brother -: Heart disease - Social History Smoking Status: Former smoker Alcohol use: No CD- Drugs: No Caffeine use: Yes Place of Residence: Home Review of Systems 10-point ROS is otherwise unremarkable Physical Examination - Vital Signs Temperature: 97.2 F Blood Pressure: 131/54 Pulse: 55 Respirations: 17 Pulse Ox (%): 95 - Physical Exam General: Alert, In no apparent distress, Oriented x3 HEENT: Atraumatic, Normocephalic Neck: Supple, 2+ carotid pulse no bruit Respiratory: Normal air movement, Diminished Cardiovascular: Normal pulses, Irregular heart rate/rhythm Capillary refill: <2 Seconds Gastrointestinal: Normal bowel sounds, Soft and benign Musculoskeletal: No clubbing, No contractures Integumentary: No breakdown, No significant lesion Neurological: Normal speech, Normal strength at 5/5 x4 extr, Sensation intact - Studies Laboratory Data (last 24 hrs) 03/16/24 03/16/24 03/16/24 14:43 14:43 14:43 WBC 6.30 Hgb 15.9 H Hct 47.0 H Plt Count 217 PT 10.9 INR 0.97 Sodium 141 Potassium 3.5 BUN 24 H Creatinine 0.87 Glucose 136 H Assessment and Plan - Problems (Diagnosis) (1) Atrial fibrillation with RVR Current Visit: Yes Status: Acute (2) NSTEMI (non-ST elevated myocardial infarction) Current Visit: Yes Status: Acute (3) Dyspnea Current Visit: Yes Status: Acute (4) Morbid obesity Current Visit: Yes Status: Chronic (5) Hypertension Current Visit: Yes Status: Chronic (6) Hyperlipidemia Current Visit: Yes Status: Chronic Qualifiers: Hyperlipidemia type: unspecified Qualified Code(s): E78.5 - Hyperlipidemia, unspecified - Plan Assessment plan Cardiology consult, telemetry A-fib RVR NSTEMI Dyspnea Trend troponin, beta-blockers, O2 2 L keep sats greater than 92% Lovenox 1 mg/kg every 12 Troponin 62->->105->139->83 [id number] EKG on on arrival to the ER A-fib 160, treated with IV metoprolol / Repeat EKG A-fib 46, EKG shared with cardiology, beta-cassy held (rate fluctuating 45-60) Echo ordered Hypertension Hyperlipidemia CAD History of PCI Osteoarthritis Resume home meds Full code DVT Lovenox 1 mg/kg Diet cardiac Disposition Home independent Discharge Plan: Home - Advance Directives Does patient have a Living Will: No Does patient have a Durable POA for Healthcare: No - Code Status/Comfort Care Code Status: Full Code Critical Care: No Time Spent Managing Pts Care (In Minutes): 55
[2024-03-17] MEDS: lisinopriL 20 MG TAB PO SCH (07:29)
[2024-03-17] MEDS: PRASUGREL (EFFIENT) 10 MG TAB PO SCH (08:00)
[2024-03-17] MEDS: ASPIRIN 81 MG CHEWABLE TABLET PO SCH (08:02)
[2024-03-17] MEDS: FUROSEMIDE 40 MG/4 ML VIAL IV SCH (08:02)
[2024-03-17] MEDS: POTASSIUM 25 MEQ EFFERV TAB PO ONE (08:02)
[2024-03-17] MEDS: CALCIUM GLUCONATE 1 GM IVPB 1 GM/50 ML BAG IV ONE (08:38)
[2024-03-17] MEDS: ATROPINE SULFATE 1 MG/ML INJ IV ONE (08:53)
[2024-03-17] MEDS: FLU (Fluarix Triv) TS24-25(6MOS UP)/PF 45 MCG/0.5 ML Syringe IM ONE (10:15)
--- NOTE | 2024-03-17 10:35 | P.PN ---
Subjective Date of Service: 03/17/24 Chief Complaint: Afib RVR Reports shortness of breath, started on O2 2 L, running A-fib bradycardic heart rate 50s to 60s, no reported chest pain Review of Systems 10-point ROS is otherwise unremarkable Physical Examination - Vital Signs Temperature: 97.2 F Blood Pressure: 131/54 Pulse: 55 Respirations: 17 Pulse Ox (%): 95 - Physical Exam General: Alert, In no apparent distress, Oriented x3, Obese HEENT: Atraumatic, Normocephalic Neck: 2+ carotid pulse no bruit, JVD not distended Respiratory: Normal air movement, Diminished Cardiovascular: No edema, Irregular heart rate/rhythm Capillary refill: <2 Seconds Gastrointestinal: Normal bowel sounds, Non-distended Musculoskeletal: No swelling, No contractures Integumentary: No breakdown, No significant lesion Neurological: Normal speech, Normal strength at 5/5 x4 extr, Normal tone - Studies Laboratory Data (last 24 hrs) 03/17/24 03/17/24 03/16/24 04:51 04:51 14:43 WBC 7.20 Hgb 14.2 D Hct 40.7 Plt Count 240 PT 10.9 INR 0.97 Sodium 143 Potassium 3.8 BUN 24 H Creatinine 0.85 Glucose 120 H Phosphorus 4.5 Total Bilirubin 0.7 AST 12 L ALT 21 Alkaline Phosphatase 70 Triglycerides 98 Cholesterol 173 HDL Cholesterol 48 Cholesterol/HDL Ratio 3.60 03/16/24 03/16/24 14:43 14:43 WBC 6.30 Hgb 15.9 H Hct 47.0 H Plt Count 217 PT INR Sodium 141 Potassium 3.5 BUN 24 H Creatinine 0.87 Glucose 136 H Phosphorus Total Bilirubin AST ALT Alkaline Phosphatase Triglycerides Cholesterol HDL Cholesterol Cholesterol/HDL Ratio Assessment And Plan - Current Problems (Diagnosis) (1) Atrial fibrillation with RVR Current Visit: Yes Status: Acute (2) NSTEMI (non-ST elevated myocardial infarction) Current Visit: Yes Status: Acute (3) Dyspnea Current Visit: Yes Status: Acute Qualifiers: Dyspnea type: unspecified Qualified Code(s): R06.00 - Dyspnea, unspecified (4) Morbid obesity Current Visit: Yes Status: Chronic (5) Hypertension Current Visit: Yes Status: Chronic (6) Hyperlipidemia Current Visit: Yes Status: Chronic Qualifiers: Hyperlipidemia type: unspecified Qualified Code(s): E78.5 - Hyperlipidemia, unspecified - Plan Assessment plan Cardiology consult, telemetry A-fib RVR NSTEMI Dyspnea Trend troponin, beta-blockers, O2 2 L keep sats greater than 92% Lovenox 1 mg/kg every 12 Troponin 62->->105->139->83 [id number] EKG on on arrival to the ER A-fib 160, treated with IV metoprolol 1/ Repeat EKG A-fib 46, EKG shared with cardiology, beta-cassy held (rate fluctuating 45-60) Echo ordered Hypertension Hyperlipidemia CAD History of PCI Osteoarthritis Resume home meds Full code DVT Lovenox 1 mg/kg Diet cardiac Disposition Home independent Time Spent Managing PTS Care (In Minutes): 35
[2024-03-17] MEDS: ACETAMINOPHEN 325 MG TABLET PO PRN (23:09)
[2024-03-18 06:10] LABS: Anion Gap 12.4 mEq/L (5.0-15.0); Magnesium 1.9 mg/dL (1.6-2.4); Phosphorus 5.9 mg/dL (2.5-4.9); Potassium 3.4 mEq/L (3.5-5.1); Troponin High Sensitivity 41.9 pg/mL (<58.9)
[2024-03-18] MEDS: POTASSIUM 25 MEQ EFFERV TAB PO ONE (08:38)
[2024-03-18 08:58] VITALS: TEMP 98.1
[2024-03-18] MEDS ORDERED: FUROSEMIDE 20 MG TABLET PO PRN (09:20)
--- NOTE | 2024-03-18 09:20 | P.PN ---
Date of Service: 03/18/24 Subjective: ROS: 10 point ROS as noted above, otherwise negative Physical exam GEN: Alert, oriented, NAD HEENT: Normal conjunctiva, sclera anicteric CV: Regular rate and rhythm, no edema Pulm: Nonlabored respirations on room air ABD: Soft, nontender, nondistended MSK: No joint tenderness Integumentary: No rashes Neuro: Normal speech, normal affect Vitals reviewed Problem List New onset atrial fibrillation with rapid ventricular response NSTEMI History of CAD with multiple stents in place Hypertension Hyperlipidemia VIPUL Plan New onset atrial fibrillation with rapid ventricular response NSTEMI History of CAD with multiple stents in place Troponin peaked at 139 Cardiology consulted, echocardiogram ordered and pending Per chart review last cath 2020 with new stent placement Denies chest pain at this time Currently in sinus bradycardia rate low 50s to high 40s Has not bradycardia after metoprolol was initiated It appears that patient takes Toprol-XL 25 mg daily at home Await further recommendations from cardiology After transitioning to sinus rhythm QTc was 430 on EKG Hypertension Hyperlipidemia VIPUL Continue home indications, CPAP at night VTE: Therapeutic Lovenox Code: Full Dispo: 1-2 days Time Spent Managing Pts Care (In Minutes): 35
[2024-03-18 09:54] VITALS: O2SAT 92
--- NOTE | 2024-03-18 11:06 | P.CNS ---
Date of Consult: 03/18/24 Chief Complaint: Afib RVR History of Present Illness: Patient with PMH of complex CAD s/p brachytherapy in the past, presented with palpitations, found to be in AF w RVR, denies any chest pain, report dizziness and SOB, no syncope. Allergies No Known Allergies Allergy (Verified 03/16/24 19:26) Home medications list reviewed: Yes Home Medications: Aspirin Chewable [Aspirin Chewable*] 81 mg PO DAILY 03/16/24 Atorvastatin Calcium [Lipitor] 40 mg PO BEDTIME 03/16/24 Furosemide [Lasix*] 10 mg PO DAILY PRN 03/16/24 Lisinopril [Zestril] 40 mg PO DAILY 03/16/24 Metoprolol Succinate [Toprol Xl] 25 mg PO DAILY 03/16/24 Prasugrel HCl 10 mg PO DAILY 03/16/24 Umeclidinium Brm/Vilanterol Tr [Anoro Ellipta 62.5-25 Mcg INH] 1 puff IH DAILY 03/16/24 - Past Medical/Surgical History Diabetic: No -: Hypertension, -: HLD -: CAD -: CHF -: [place] -: heart stent x 5 2013 -: Hernia surgery -: stent x1 2020 - Family History Brother Medical History: Heart disease - Social History Smoking Status: Former smoker Alcohol use: No CD- Drugs: No Caffeine use: Yes Place of Residence: Home Review of Systems 10-point ROS is otherwise unremarkable Physical Examination Temp Pulse Resp BP Pulse Ox 98.1 F 56 20 135/69 91 03/18/24 08:00 03/18/24 08:00 03/18/24 08:00 03/18/24 08:00 03/18/24 08:00 General: Alert, In no apparent distress HEENT: Atraumatic, PERRLA, Mucous membr. moist/pink, EOMI, Sclerae nonicteric Neck: Supple, 2+ carotid pulse no bruit, No LAD, Without JVD or thyroid abnormality Respiratory: Clear to auscultation bilaterally, Normal air movement Cardiovascular: Regular rate/rhythm, Normal S1 S2 Gastrointestinal: Normal bowel sounds, No tenderness Musculoskeletal: No tenderness Integumentary: No rashes Neurological: Normal gait, Normal speech, Normal tone, Normal affect Lymphatics: No axilla or inguinal lymphadenopathy - Problems (1) Atrial fibrillation with RVR Current Visit: Yes Status: Acute Plan: Patient is currently in sinus rhythm continue lopressor 12.5 mg po BID (hold for BP less that 100 or HR less than 50) start Eliquis 5 mg po BID Stop aspirin (2) NSTEMI (non-ST elevated myocardial infarction) Current Visit: Yes Status: Acute Plan: most likely type 2 MT from atrial fibrillation with RVR stop ASA continue Effient (3) Hypertension Current Visit: Yes Status: Chronic Plan: continue her home medications.
[2024-03-18] MEDS ORDERED: METOPROLOL TAR 25 MG TAB PO SCH (11:21)
[2024-03-18 12:40] VITALS: BP 135/68
--- NOTE | 2024-03-18 13:44 | P.DS ---
Admission Date: 03/17/24 Discharge Date: 03/18/24 Disposition: ROUTINE DISCHARGE Discharge Condition: GOOD Reason for Admission: Afib RVR Brief History of Present Illness: 69 year old female with past medical history of KS, CAD s/p multiple stents, CHF, HTN, bronchitis, osteoarthritis Presented to shortness of breath and palpitations that started when she woke up.She denies chest pain, or chest pressure. She reports feeling short of breath and heart racing that was getting progressively worse today. She denies history of similar symptoms, no history of afib RVR, she reports being on metoprolol with medication compliance. she reports having cardiac stents. she reports previous ECHO in the last year. She denies fever, cough, edema, dizziness, EKG on arrival to ER Afib RVR HR 160, she was treated with metoprol IV, and heartreate responded well. <100. plan to admit for afib RVR, NSTEMI with cardiology to consult, Hospital Course: Problem List New onset atrial fibrillation with rapid ventricular response NSTEMI History of CAD with multiple stents in place Hypertension Hyperlipidemia VIPUL Patient was admitted for new onset afib with RVR. She was previously taking metoprolol succinate 25mg daily. She converted to NSR after further beta blockers. After converting to NSR heart rate has been been running around 48 to 55. She has been asyptomatic and maintaining NSR. She was on effient and aspirin at home. Cardiology recommends discontinuing the aspirin and continue Effient and Eliquis 5 mg by mouth twice daily for stroke risk reduction. Also recommend switching metoprolol succinate to 5 mg to metoprolol tartrate 12.5 mg by mouth twice daily with hold parameters of systolic blood pressure less than 100 or heart rate less than 50. Patient reports that at home her baseline heart rate is in the 50s. Recommend outpatient follow-up with cardiology in 1 week Please also follow-up with your primary care doctor 1 to 2 weeks Stop taking aspirin Prescription for Eliquis and metoprolol tartrate sent to your pharmacy [facility] in [place] Stop taking your metoprolol succinate/Toprol XL Vital Signs/Physical Exam: Temp Pulse Resp BP Pulse Ox 98.1 F 56 20 135/68 93 03/18/24 12:00 03/18/24 12:00 03/18/24 12:00 03/18/24 12:03/18/24 12:00 General: Alert, In no apparent distress, Oriented x3 HEENT: Atraumatic, PERRLA Neck: Supple, JVD not distended Respiratory: Clear to auscultation bilaterally, Normal air movement Cardiovascular: Regular rate/rhythm, Normal S1 S2 Gastrointestinal: Normal bowel sounds, No tenderness Musculoskeletal: No tenderness Integumentary: No rashes Neurological: Normal speech, Normal tone, Normal affect Laboratory Data at Discharge: WBC 7.20 thou/uL (4.3-10.9) 03/17/24 04:51 Hgb 14.2 g/dL (12.0-15.0) D 03/17/24 04:51 Hct 40.7 % (36.0-45.0) 03/17/24 04:51 Plt Count 240 thou/uL (152-406) 03/17/24 04:51 PT 10.9 SECONDS (9.4-12.5) 03/16/24 14:43 INR 0.97 03/16/24 14:43 Sodium 139 mEq/L (136-145) 03/18/24 05:19 Potassium 3.4 mEq/L (3.5-5.1) L 03/18/24 05:19 BUN 34 mg/dL (7-18) H 03/18/24 05:19 Creatinine 1.36 mg/dL (0.55-1.02) H 03/18/24 05:19 Glucose 116 mg/dL (74-106) H 03/18/24 05:19 Phosphorus 5.9 mg/dL (2.5-4.9) H 03/18/24 05:19 Magnesium 1.9 mg/dL (1.6-2.4) 03/18/24 05:19 Total Bilirubin 0.7 mg/dL (0.2-1.0) 03/17/24 04:51 AST 12 U/L (15-37) L 03/17/24 04:51 ALT 21 U/L (13-56) 03/17/24 04:51 Alkaline Phosphatase 70 U/L (45-117) 03/17/24 04:51 Triglycerides 98 mg/dL (<150) 03/17/24 04:51 Cholesterol 173 mg/dL (<200) 03/17/24 04:51 HDL Cholesterol 48 mg/dL (40-60) 03/17/24 04:51 Cholesterol/HDL Ratio 3.60 03/17/24 04:51 Home Medications: Atorvastatin Calcium [Lipitor] 40 mg PO BEDTIME 03/16/24 Furosemide [Lasix*] 10 mg PO DAILY PRN 03/16/24 Lisinopril [Zestril] 40 mg PO DAILY 03/16/24 Prasugrel HCl 10 mg PO DAILY 03/16/24 Umeclidinium Brm/Vilanterol Tr [Anoro Ellipta 62.5-25 Mcg INH] 1 puff IH DAILY 03/16/24 Apixaban [Eliquis] 5 mg PO BID #60 tab 03/18/24 Metoprolol Tartrate [Lopressor*] 12.5 mg PO BID #30 tab 03/18/24 New Medications: Apixaban [Eliquis] 5 mg PO BID #60 tab Metoprolol Tartrate [Lopressor*] 12.5 mg PO BID #30 tab Physician Discharge Instructions: Patient was admitted for new onset afib with RVR. She was previously taking metoprolol succinate 25mg daily. She converted to NSR after further beta blockers. After converting to NSR heart rate has been been running around 48 to 55. She has been asyptomatic and maintaining NSR. She was on effient and aspirin at home. Cardiology recommends discontinuing the aspirin and continue Effient and Eliquis 5 mg by mouth twice daily for stroke risk reduction. Also recommend switching metoprolol succinate to 5 mg to metoprolol tartrate 12.5 mg by mouth twice daily with hold parameters of systolic blood pressure less than 100 or heart rate less than 50. Patient reports that at home her baseline heart rate is in the 50s. Recommend outpatient follow-up with cardiology in 1 week Please also follow-up with your primary care doctor 1 to 2 weeks Stop taking aspirin Prescription for Eliquis and metoprolol tartrate sent to your pharmacy [facility] in [place] Stop taking your metoprolol succinate/Toprol XL Diet: Regular Activity: Ad lucy Followup: NONE,NONE [Primary Care Provider] - 1-2 Weeks Time spent managing pt's care (in minutes): 42
[2024-03-18] MEDS ORDERED: ATORVASTATIN 40 MG TAB PO SCH (21:00)
[2024-03-18] MEDS ORDERED: APIXABAN 5 MG TABLET PO SCH (21:00)
[2024-03-19] MEDS ORDERED: [UNRECOGNIZED DRUG - OTHER] IH SCH (09:00)
--- NOTE | 2024-03-19 12:46 | EKG ---
Test Date: 2024-03-17 Test Time: 08:57:28 Wall Man: CINDY MEASUREMENT RESULTS: Intervals: Rate: 46 AK: 152 QRSD: 100 QT: 498 QTc: 435 [place]: P: 74 AK: 152 QRS: 5 T: -12 INTERPRETIVE STATEMENTS: Marked sinus bradycardia Inferior infarct, age undetermined Anterior infarct, age undetermined T wave abnormality, consider lateral ischemia Abnormal ECG Compared to ECG 03/16/2024 15:14:22 Sinus rhythm no longer present Myocardial infarct finding still present T-wave abnormality still present Possible ischemia still present Electronically Signed On 03-19-24 12:42:06 DIRECTOR OF GUIDANCE by Дмитрий Son
--- NOTE | 2024-03-19 12:48 | EKG ---
Test Date: 2024-03-16 Test Time: 14:35:01 Diesel Pile Hammer Operator: JESUS MEASUREMENT RESULTS: Intervals: Rate: 127 LA: QRSD: 108 QT: 324 QTc: 470 [place]: P: LA: QRS: 8 T: -51 INTERPRETIVE STATEMENTS: Atrial fibrillation Inferior infarct, age undetermined Anterior infarct, age undetermined Abnormal ECG Compared to ECG 10/06/2021 13:16:30 Sinus rhythm no longer present Atrial premature complex(es) no longer present Myocardial infarct finding still present Electronically Signed On 03-19-24 12:45:06 SPRAY WORKER by Дмитрий Son
--- NOTE | 2024-03-19 12:48 | EKG ---
Test Date: 2024-03-16 Test Time: 15:14:22 Hadoop Application Developer: JESUS MEASUREMENT RESULTS: Intervals: Rate: 71 TX: 152 QRSD: 88 QT: 396 QTc: 430 [place]: P: 59 [place]: 152 QRS: 5 T: -35 INTERPRETIVE STATEMENTS: Normal sinus rhythm Low voltage QRS Inferior infarct, age undetermined T wave abnormality, consider lateral ischemia Abnormal ECG Compared to ECG 03/16/2024 14:35:01 Low QRS voltage now present T-wave abnormality now present Possible ischemia now present Atrial fibrillation no longer present Myocardial infarct finding still present Electronically Signed On 03-19-24 12:45:03 OFFC SPEC by Дмитрий Son
== END 2024-03-18 14:30 | disposition home or self-care (01) | DRG 281 ==
LOC: ER 14:11 → ERHOLD 16:45 → 2ND 18:29 → OBSVTOIN 03-17 07:24
PROVIDERS: ADMIT Hospitalist; ATTEND Hospitalist
DX: I48.19 Other persistent atrial fibrillation (principal); Z68.41 Body mass index [BMI] 40.0-44.9, adult; I21.A1 Myocardial infarction type 2; E66.01 Morbid (severe) obesity due to excess calories; I10 Essential (primary) hypertension; E78.5 Hyperlipidemia, unspecified; M19.90 Unspecified osteoarthritis, unspecified site; G47.33 Obstructive sleep apnea (adult) (pediatric); J44.9 Chronic obstructive pulmonary disease, unspecified; I25.10 Atherosclerotic heart disease of native coronary artery without angina pectoris; I25.2 Old myocardial infarction; Z95.5 Presence of coronary angioplasty implant and graft; Z79.82 Long term (current) use of aspirin; Z79.899 Other long term (current) drug therapy; Z87.891 Personal history of nicotine dependence
CPT/HCPCS: 36415; 71045; 80048; 80053; 80061; 80069; 81001; 83735; 83880; 84100; 84484; 85025; 85610; 93005; 96365; 96375; 99285; G0378; J0360; J0461; J1650; J1940; J3475

== ENCOUNTER 2024-04-22 02:44 | Emergency (ER) | payer OTHER ==
[2024-04-22] MEDS ORDERED: MAGNESIUM SULFATE 1 gm IVPB 1 GM/100 ML BAG IV ONE (03:39)
[2024-04-22 04:29] LABS: Absolute Basophils 0.1 K/uL (0-0.5); Absolute Eosinophils 0.1 K/uL (0-0.5); Absolute Lymphocytes (CBC) 2.1 K/uL (0.7-4.9); Absolute Monocytes 0.9 K/uL (0.1-1.3); Absolute Neutrophil 6.5 K/uL (1.8-8.0); Basophils % 0.6 % (0-1.3); Eosinophils % 1.4 % (0-4.4); Hematocrit 44.8 % (36.0-45.0); Hemoglobin 15.8 g/dL (12.0-15.0); Lymphocytes % 21.4 % (15.3-44.8); MCH 33.5 pg (27.0-35.0); MCHC 35.3 g/dL (32.0-36.0); MCV 94.8 fL (80-100); MPV 9.1 fL (7.6-11.3); Monocytes % 9.4 % (3.3-12.3); Neutrophils % 67.2 % (41.7-73.7); PT Prothrombin Time 13.2 SECONDS (9.4-12.5); Platelets 226 thou/uL (152-406); Protime INR 1.26; RBC Red Blood Cell Count 4.72 M/uL (3.86-4.86)
[2024-04-22 05:24] LABS: Anion Gap 9.5 mEq/L (5.0-15.0); Potassium 3.5 mEq/L (3.5-5.1); Troponin High Sensitivity 17.3 pg/mL (<58.9)
--- NOTE | 2024-04-22 05:38 | EDPHYS ---
Physician Documentation [facility] Name: Sheree Fuentes Age: 69 yrs Sex: Female : 1955 Arrival Date: 04/22/2024 Time: 02:44 Bed 11 Private MD: ED Physician Janak Castro HPI: 04/22 03:52 This 69 yrs old Female presents to ER via Wheelchair with complaints of High Blood rn Pressure, Pt states she has afib. 03:52 The patient or guardian reports chest pain that is located primarily in the anterior rn chest wall, left. Onset: last night. The pain does not radiate. Associated signs and symptoms: Pertinent positives: palpitations, Pertinent negatives: abdominal pain, cough, diaphoresis, shortness of breath, syncope, vomiting. The chest pain is described as aching. Modifying factors: The symptoms are alleviated by nothing. the symptoms are aggravated by nothing. Severity of pain: At its worst the pain was mild in the emergency department the pain is unchanged. Patient reports somewhat new history of atrial fibrillation. Patient reports palpitations that began last night, now feeling better but prior to arrival began to feel mild chest pain on the left side. Does not remember what medication she takes. No nausea or vomiting. No fever or cough.. Historical: - Allergies: 03:14 No Known Allergies; kl - PMHx: 03:14 CAD; Hernia; Hypertension; Myocardial infarction; Atrial fibrillation; kl - PSHx: 03:14 Repair of inguinal hernia; Stented artery; kl - Immunization history:: Adult Immunizations not immunized. - Infectious Disease History:: Denies. - Social history:: Smoking status: Patient/guardian denies using tobacco, the patient reports quitting approximately 14 years ago. - Family history:: not pertinent. - Hospitalizations: : The patient was recently seen at [facility]. ROS: 03:52 Constitutional: Negative for fever, chills, and weight loss, Cardiovascular: Positive rn for chest pain and palpitations Respiratory: Negative for shortness of breath, cough, wheezing, and pleuritic chest pain, Abdomen/GI: Negative for abdominal pain, nausea, vomiting, diarrhea, and constipation, Back: Negative for injury and pain, MS/Extremity: Negative for injury and deformity, Skin: Negative for injury, rash, and discoloration, Neuro: Negative for headache, weakness, numbness, tingling, and seizure, Exam: 03:52 Constitutional: This is a well developed, well nourished patient who is awake, alert, rn and in no acute distress. Cardiovascular: Occasional PVCs but otherwise regular rate and rhythm. Respiratory: Mild tachypnea Abdomen/GI: Soft, non-tender 04:33 ECG was reviewed by the Attending Physician. rn Vital Signs: 02:59 BP 164 / 80; Pulse 62; Resp 20; Temp 97.8; Pulse Ox 94% on R/A; Weight 108.86 kg (R); kl Height 5 ft. 3 in. ; Pain 0/10; 05:04 BP 156 / 72; Pulse 62; Resp 16; Pulse Ox 94% on R/A; kmf 05:47 BP 148 / 68; Pulse 65; Resp 16 S; Pulse Ox 96% on R/A; lg3 02:59 Body Mass Index 42.51 (108.86 kg, 160.02 cm) kl 02:59 Pain Scale: Adult kl MDM: 02:51 Medical Screening Exam initiated rn 05:36 Differential diagnosis: acute myocardial infarction, acute pericarditis, anxiety, rn Atrial fibrillation. Data reviewed: vital signs, nurses notes, lab test result(s), EKG, radiologic studies, plain films, and as a result, I will discharge patient. Care significantly affected by the following chronic conditions: Atrial fibrillation. Counseling: I had a detailed discussion with the patient and/or guardian regarding the historical points, exam findings, and any diagnostic results supporting the discharge/admit diagnosis, the presence of at least one elevated blood pressure reading (>120/80) during this emergency department visit, lab results, radiology results, the need for outpatient follow up, to return to the emergency department if symptoms worsen or persist or if there are any questions or concerns that arise at home. Response to treatment: the patient's symptoms have markedly improved after treatment, the patient's symptoms have resolved after treatment, the patient's condition has returned to base line, the patient is now symptom free, and as a result, I will discharge patient. Special discussion: I discussed with the patient/guardian in detail that at this point there is no indication for admission to the hospital. It is understood, however, that if the symptoms persist or worsen the patient needs to return immediately for re-evaluation. Based on the history and exam findings, there is no indication for further emergent testing or inpatient evaluation. I discussed with the patient/guardian the need to see the pilot highway patrol for further evaluation of the symptoms. I discussed with the patient/guardian the need to see the primary care provider for further evaluation of the symptoms. ED course: Patient in sinus rhythm, likely took herself out of atrial fibrillation with coughing fit that she had prior to arrival. Troponin negative. BNP slightly elevated, chest x-ray mild pulmonary edema. Offered IV Lasix diuresis here then discharge, patient states has been urinating a lot in response to her Lasix at home. Will tell her to double her Lasix for the next 2 or 3 days to see response. Return precautions given and understood.. 04/22 02:58 Order name: Basic Metabolic Panel; Complete Time: 05:33 rn 04/22 02:58 Order name: CBC with Diff; Complete Time: 04:41 rn 04/22 02:58 Order name: NT PRO-BNP; Complete Time: 05:33 rn 04/22 02:58 Order name: PT-INR; Complete Time: 04:41 rn 04/22 02:58 Order name: Troponin HS; Complete Time: 05:33 rn 04/22 02:58 Order name: XRAY Chest (1 view) rn 04/22 02:58 Order name: EKG; Complete Time: 02:59 rn 04/22 02:58 Order name: Cardiac monitoring; Complete Time: 04:01 rn 04/22 02:58 Order name: EKG - Nurse/Tech; Complete Time: 04:01 rn 04/22 02:58 Order name: IV Saline Lock; Complete Time: 04:01 rn 04/22 02:58 Order name: Labs collected and sent; Complete Time: 04:01 rn 04/22 02:58 Order name: O2 Per Protocol; Complete Time: 04:01 rn 04/22 02:58 Order name: O2 Sat Monitoring; Complete Time: 04:01 rn EC:33 Rate is 74 beats/min. Rhythm is regular. Left axis deviation noted. QRS is positive in rn lead I and negative in lead aVF. QRS interval is normal. No Q waves. T waves are Normal. No ST changes noted. Clinical impression: NSR w/ Non-specific ST/T Changes. Interpreted by me. Reviewed by me. Administered Medications: 04:01 Drug: Magnesium Sulfate IVPB 1 grams IVPB once over 1 hrs Route: IVPB; Infused Over: 1 lg3 hrs; Site: left antecubital; 05:48 Follow up: Response: No adverse reaction; IV Status: Completed infusion; IV Intake: lg3 100ml Disposition Summary: 04/22/24 05:38 Discharge Ordered Notes: Location: Home rn Problem: an acute exacerbation rn Symptoms: have improved rn Condition: Stable rn Diagnosis - Paroxysmal atrial fibrillation rn Followup: rn - With: Private Physician - When: As needed - Reason: Recheck today's complaints, Re-evaluation by your physician Discharge Instructions: - Discharge Summary Sheet rn - Atrial Fibrillation rn Forms: - Medication Reconciliation Form rn - Antibiotic international nurse - Prescription Opioid Use rn - Patient Portal Instructions rn - Leadership Thank You Letter rn Signatures: Dispatcher [employer] Luz Hood RN Janak Carranza MD MD rn Able, Lacie, RN RN lg3 Corrections: (The following items were deleted from the chart) 02:59 02:59 BASIC METABOLIC PANEL+C.LAB.BRZ ordered. EDMS EDMS 02:59 02:59 CBC+H.LAB.BRZ ordered. EDMS EDMS 02:59 02:59 PROBNP+C.LAB.BRZ ordered. EDMS EDMS 02:59 02:59 PROTIME (+INR)+COAG.LAB.BRZ ordered. EDMS EDMS 02:59 02:59 Troponin High Sensitivity+C.LAB.BRZ ordered. EDMS EDMS
--- NOTE | 2024-04-22 05:38 | ER ---
Nurse's Notes [facility] Name: Sheree Fuentes Age: 69 yrs Sex: Female : 1955 Arrival Date: 04/22/2024 Time: 02:44 Bed 11 Private MD: Diagnosis: Paroxysmal atrial fibrillation Presentation: 04/22 02:59 Chief complaint: Patient states: felt like heart was racing and took BP reports kl systolic >200. Coronavirus screen: Vaccine status: Patient reports being unvaccinated. Ebola Screen: Patient negative for fever greater than or equal to 101.5 degrees Fahrenheit, and additional compatible Ebola Virus Disease symptoms. Initial Sepsis Screen: Does the patient meet any 2 criteria? No. Patient's initial sepsis screen is negative. Does the patient have a suspected source of infection? No. Patient's initial sepsis screen is negative. Risk Assessment: Do you want to hurt yourself or someone else? Patient reports no desire to harm self or others. Onset of symptoms was April 22, 2024 at 02:20. 02:59 Method Of Arrival: Wheelchair kl 02:59 Acuity: CHAD 3 kl Triage Assessment: 03:16 General: Appears in no apparent distress. Behavior is calm, cooperative. Pain: Denies kl pain. Cardiovascular: Reports palpitations. Historical: - Allergies: 03:14 No Known Allergies; kl - PMHx: 03:14 CAD; Hernia; Hypertension; Myocardial infarction; Atrial fibrillation; kl - PSHx: 03:14 Repair of inguinal hernia; Stented artery; kl - Immunization history:: Adult Immunizations not immunized. - Infectious Disease History:: Denies. - Social history:: Smoking status: Patient/guardian denies using tobacco, the patient reports quitting approximately 14 years ago. - Family history:: not pertinent. - Hospitalizations: : The patient was recently seen at [facility]. Screenin:58 [facility] ED Fall Risk Assessment (Adult) History of falling in the last 3 months, lg3 including since admission No falls in past 3 months (0 pts) Confusion or Disorientation No (0 pts) Intoxicated or Sedated No (0 pts) Impaired Gait No (0 pts) Mobility Assist Device Used No (0 pt) Altered Elimination No (0 pt) Score/Fall Risk Level 0 - 2 = Low Risk Oriented to surroundings, Maintained a safe environment, Educated pt \T\ family on fall prevention, incl call for assistance when getting out of bed, Assessed \T\ reinforced patient's understanding of fall precautions. Abuse screen: Denies threats or abuse. Denies injuries from another. Nutritional screening: No deficits noted. Tuberculosis screening: No symptoms or risk factors identified. Assessment: 03:58 General: Appears in no apparent distress. comfortable, Behavior is calm, cooperative. lg3 Pain: Denies pain. Neuro: No deficits noted. Stoner Agitation-Sedation Scale (RASS): 0 - Alert and Calm Level of Consciousness is awake, alert, obeys commands, Oriented to person, place, time, situation. Cardiovascular: Reports palpitations, Heart tones S1 S2 present Capillary refill < 3 seconds Clubbing of nail beds is absent JVD is absent Patient's skin is warm and dry. Rhythm is sinus rhythm with unifocal PVCs. Respiratory: No deficits noted. Airway is patent Respiratory effort is even, unlabored, Respiratory pattern is regular, symmetrical, Breath sounds are clear bilaterally. GI: No deficits noted. No signs and/or symptoms were reported involving the gastrointestinal system. : No signs and/or symptoms were reported regarding the genitourinary system. EENT: No deficits noted. No signs and/or symptoms were reported regarding the EENT system. Derm: No deficits noted. No signs and/or symptoms reported regarding the dermatologic system. Skin is intact, is healthy with good turgor, Skin is dry, Skin is normal, Skin temperature is warm. Musculoskeletal: No deficits noted. No signs and/or symptoms reported regarding the musculoskeletal system. Circulation, motion, and sensation intact. Range of motion: intact in all extremities. 04:55 Reassessment: Patient appears in no apparent distress at this time. No changes from lg3 previously documented assessment. Patient and/or family updated on plan of care and expected duration. Pain level reassessed. Patient is alert, oriented x 3, equal unlabored respirations, skin warm/dry/pink. 05:47 Reassessment: Patient appears in no apparent distress at this time. No changes from lg3 previously documented assessment. Patient and/or family updated on plan of care and expected duration. Pain level reassessed. Patient is alert, oriented x 3, equal unlabored respirations, skin warm/dry/pink. Patient states feeling better. Patient states symptoms have improved. Vital Signs: 02:59 BP 164 / 80; Pulse 62; Resp 20; Temp 97.8; Pulse Ox 94% on R/A; Weight 108.86 kg (R); kl Height 5 ft. 3 in. ; Pain 0/10; 05:04 BP 156 / 72; Pulse 62; Resp 16; Pulse Ox 94% on R/A; kmf 05:47 BP 148 / 68; Pulse 65; Resp 16 S; Pulse Ox 96% on R/A; lg3 02:59 Body Mass Index 42.51 (108.86 kg, 160.02 cm) kl 02:59 Pain Scale: Adult ED Course: 02:50 Patient arrived in ED. gm2 02:51 Janak Castro MD is Attending Physician. rn 03:14 Triage completed. kl 03:56 XRAY Chest (1 view) In Process Unspecified. EDMS 03:58 Patient has correct armband on for positive identification. Placed in gown. Bed in low lg3 position. Call light in reach. Side rails up X 1. Client placed on continuous cardiac and pulse oximetry monitoring. NIBP monitoring applied. bilingual speech language pathologist on. Door closed. Noise minimized. Warm blanket given. Pillow given. 03:58 Arm band placed on right wrist. lg3 03:58 Initial lab(s) drawn, by ED staff, sent to lab. EKG done, by ED staff, reviewed by lg3 Janak Castro MD. Inserted saline lock: 20 gauge in left antecubital area, using aseptic technique. Blood collected. Flushed with 10 mL NS. 04:01 Basic Metabolic Panel Sent. lg3 04:01 CBC with Diff Sent. lg3 04:01 NT PRO-BNP Sent. lg3 04:01 PT-INR Sent. lg3 04:01 Troponin HS Sent. lg3 04:05 Deidra Davis, RN is Primary Nurse. lg3 05:48 No provider procedures requiring assistance completed. IV discontinued, intact, lg3 bleeding controlled, No redness/swelling at site. Pressure dressing applied. Administered Medications: 04:01 Drug: Magnesium Sulfate IVPB 1 grams IVPB once over 1 hrs Route: IVPB; Infused Over: 1 lg3 hrs; Site: left antecubital; 05:48 Follow up: Response: No adverse reaction; IV Status: Completed infusion; IV Intake: lg3 100ml Medication: 03:58 VIS not applicable for this client. lg3 Intake: 05:48 IV: 100ml; Total: 100ml. lg3 Outcome: 05:38 Discharge ordered by . angelia 05:48 Discharged to home ambulatory, lg3 05:48 Condition: stable 05:48 Discharge instructions given to patient, Instructed on discharge instructions, follow up and referral plans. Demonstrated understanding of instructions, follow-up care, 05:49 Patient left the ED. lg3 Signatures: Dispatcher [employer] EDLuz Diehl RN RN kl Nieto, Roman, MD MD rn Able, Lacie, RN RN lg3 Tomeka Moore 2 [facility]
[2024-04-22 05:55] VITALS: TEMP 97.8
[2024-04-22 05:58] VITALS: BP 148/68; O2SAT 96
--- NOTE | 2024-04-22 06:26 | RAD REPORT ---
EXAM: XR Chest, 1 View CLINICAL HISTORY: The patient is 69 years old and is Female; PALPITATIONS TECHNIQUE: Frontal view of the chest. COMPARISON: No relevant prior studies available. FINDINGS: Lungs: Mildly prominent interstitial markings. No consolidation. Pleural space: Unremarkable. No pneumothorax. Heart: Unremarkable. Mediastinum: Unremarkable. Normal mediastinal contour. Bones/joints: No acute findings. IMPRESSION: Mildly prominent interstitial markings. No consolidation. Electronically signed by: Mario Guerrero MD 04/22/2024 06:16 AM [facility] 8 Due to temporary technical issues with the PACS/[place] reporting system, reports are being shadi d by the in-house radiologist without review as a courtesy to ensure prompt reporting the interpreting radiologist is fully responsible for the content of the report. Transcribed Date/Time: 04/22/2024 6:26 AM
--- NOTE | 2024-04-22 11:25 | EKG ---
Test Date: 2024-04-22 Test Time: 03:08:41 Professor Of Special Education: FLORY MEASUREMENT RESULTS: Intervals: Rate: 74 MD: 140 QRSD: 104 QT: 402 QTc: 446 [place]: P: 45 MD: 140 QRS: -15 T: 3 INTERPRETIVE STATEMENTS: Sinus rhythm with occasional premature ventricular complexes Inferior infarct, age undetermined Anterolateral infarct, age undetermined Abnormal ECG Compared to ECG 03/17/2024 08:57:28 Ventricular premature complex(es) now present Sinus bradycardia no longer present T-wave abnormality no longer present Possible ischemia no longer present Myocardial infarct finding still present Electronically Signed On 04-22-24 11:24:10 FUR REPAIRER by Дмитрий Son
== END 2024-04-22 05:49 | disposition home or self-care (01) ==
LOC: ER 02:44
DX: I48.0 Paroxysmal atrial fibrillation (principal); I10 Essential (primary) hypertension; I25.2 Old myocardial infarction
CPT/HCPCS: 96365; 93005; 85025; 80048; 36415; 85610; 84484; 83880; 71045; 99285; 96366; J3475